=== PATIENT | female | born 1945 | race Two or more races ===

== ENCOUNTER 2018-05-21 14:41 | Emergency (ER) | payer MEDICARE, OTHER ==
[~2018-05-21] VITALS: Ht 162.6 cm; Wt 86.2 kg
[2018-05-21 14:41] VITALS: BP 147/94
[2018-05-21] MEDS ORDERED: HYDROCODONE/APAP 5/325MG 1 EACH TABLET PO ONE (16:30)
[2018-05-21] MEDS ORDERED: HYDROCODONE/APAP 5/325MG 1 EACH TABLET ONE ×2 (16:32)
== END 2018-05-21 17:26 | disposition home or self-care (01) ==
LOC: ER 14:49
DX: S92.354A Nondisplaced fracture of fifth metatarsal bone, right foot, initial encounter for closed fracture (principal); I10 Essential (primary) hypertension; E11.9 Type 2 diabetes mellitus without complications; X50.1XXA Overexertion from prolonged static or awkward postures, initial encounter; Y93.01 Activity, walking, marching and hiking; Y92.89 Other specified places as the place of occurrence of the external cause; Y99.8 Other external cause status
CPT/HCPCS: 73610; 73620; 99284; A4606; Z7610

== ENCOUNTER 2020-10-31 00:52 | Inpatient (IN) | payer MEDICARE, OTHER ==
[~2020-10-31] VITALS: Ht 162.6 cm; Wt 82.6 kg
--- NOTE | 2020-10-31 01:08 | NUR ---
PATIENT'S BLOOD COLLECTED AND SENT TO THE LAB.
--- NOTE | 2020-10-31 01:11 | NUR ---
COVID SWAB COLLECTED AND SENT TO THE LAB.
[2020-10-31 01:20] LABS: BASOPHILS # (AUTO) 0.1 /CMM (0.0-0.2); BASOPHILS % (AUTO) 0.8 % (0.0-2.0); EOSINOPHILS % (AUTO) 2.3 % (0.0-6.0); HEMATOCRIT 42 % (33-45); HEMOGLOBIN 13.5 g/dL (11.5-14.8); LYMPHOCYTES # (AUTO) 4.5 /CMM (0.8-4.8); LYMPHOCYTES % (AUTO) 41.8 % (20.0-44.0); MEAN CORPUSCULAR HGB CONC 32 g/dl (31.0-36.0); MEAN CORPUSCULAR VOLUME 89 fL (82-100); MONOCYTES # (AUTO) 0.6 /CMM (0.1-1.30); MONOCYTES % (AUTO) 5.2 % (2.0-12.0); NEUTROPHILS # (AUTO) 5.3 /CMM (1.8-8.9); NEUTROPHILS % (AUTO) 49.9 % (43.0-81.0); PLATELET COUNT (AUTO) 309 /CMM (150-450); RED BLOOD CELL COUNT(AUTO) 4.69 MIL/uL (4.0-5.2); WHITE BLOOD COUNT (AUTO) 10.7 K/uL (4.3-11.0)
[2020-10-31 01:26] LABS: CALCIUM, SERUM 9.6 mg/dL (8.5-10.1); CREATININE 0.8 mg/dL (0.6-1.3)
[2020-10-31 01:38] LABS: ALBUMIN 4.3 g/dL (3.4-5.0); BILIRUBIN,DIRECT 0.1 mg/dL (0.0-0.2); BILIRUBIN,TOTAL 0.3 mg/dL (0.2-1.0)
--- NOTE | 2020-10-31 01:57 | NUR ---
REPORT GIVEN TO CHRISTOPHER HINDS FOR MARISA
[2020-10-31 02:20] VITALS: BP 155/71
--- NOTE | 2020-10-31 02:32 | NUR ---
PT TRANSFERED PER ACLS PROTOCOL
--- NOTE | 2020-10-31 03:18 | NUR ---
TELE/RN OPENING NOTES RECEIVED REPORT FROM FIREMAN HELPER BIBI AT 0155HRS. PATIENT ARRIVED ON UNIT AT 0220HRS VIA GURNEY. PATIENT SUSTAINED NO INJURIES DURING TRANSFER. PATIENT WAS ABLE TO AMBULATE TO BED WITH MIN. ASST. PATIENT STABLE ON ROOM AIR. PATIENT ALERT AND ORIENTED X 4. PATIENT BREATHING IS EVEN AND UNLABORED. NO SIGNS OF SOB OR RESPIRATORY DISTRESS NOTED. PATIENT STATED PAIN AT CHEST AREA AND A MILD HEADACHE. PATIENT SIGNED BELONGING LIST. TELE MONITOR APPLIED. SAFETY MEASURES ARE IN PLACE, BED IS LOCKED AND PLACED IN THE LOW POSITION, CALL LIGHT WITHIN REACH WILL CONTINUE TO MONITOR THROUGH OUT SHIFT.
[2020-10-31 04:00] VITALS: BP 165/93
[2020-10-31] MEDS ORDERED: MAGNESIUM HYDROXIDE 30 ML UDC PO PRN (05:30)
[2020-10-31] MEDS ORDERED: ZOLPIDEM TARTRATE 5 MG TABLET PO PRN ×2 (05:30→22:00)
[2020-10-31] MEDS ORDERED: Z GUARD REMEDY 2 OZ OINT TP PRN (05:30)
[2020-10-31] MEDS ORDERED: ACETAMINOPHEN 325 MG TABLET PO PRN (05:30)
[2020-10-31] MEDS ORDERED: MAG HYDROX/AL HYDROX/SIMETH 30 ML UDC PO PRN (05:30)
[2020-10-31] MEDS ORDERED: ENOXAPARIN SODIUM 40 MG/0.4 ML DISP.SYRIN SQ SCH (05:30)
[2020-10-31] MEDS: HYDROCODONE/APAP 5/325MG TABLET PO PRN ×3 (05:41→20:31)
--- NOTE | 2020-10-31 06:55 | NUR ---
TELE/RN CLOSING NOTES PATIENT IN BED RESTING. PATIENT IS ALERT AND ORIENTED X 4. PATIENTS BREATHING IS EVEN AND UNLABORED. NO SIGNS OF SOB OR RESPIRATORY DISTRESS NOTED. PATIENT STATES NO PAIN AT THIS TIME. TELE READING SR 79. PATIENT IN NO SIGNS OF ACUTE DISTRESS. IV ACCESS INTACT FLUSHING WELL. ALL NEEDS HAVE BEEN MET DURING SHIFT. SAFETY MEASURES ARE IN PLACE, BED IS LOCKED AND PLACED IN THE LOW POSITION, SIDE RAILS UP X 2, CALL LIGHT IS WITHIN REACH. WILL ENDORSE CARE TO DAY SHIFT NURSE.
--- NOTE | 2020-10-31 07:30 | NUR ---
RECEIVED PT. THIS AM ALERT AND ORIENTED X4,MONTSERRATIAN SPEAKING.VS STABLE.
[2020-10-31 08:00] VITALS: BP 131/72
[2020-10-31] MEDS ORDERED: IV NS 0.9% 500 ML IV PRN (09:00)
[2020-10-31] MEDS ORDERED: ATORVASTATIN 10 MG TABLET PO SCH (09:00)
[2020-10-31] MEDS ORDERED: ENOXAPARIN SODIUM 40 MG/0.4 ML DISP.SYRIN SQ ONE (09:00)
[2020-10-31] MEDS ORDERED: NITROGLYCERIN 0.4 MG/TAB BOTTLE SL ONE (09:00)
[2020-10-31] MEDS ORDERED: ATENOLOL 25 MG TABLET PO SCH (09:00)
[2020-10-31] MEDS: ASPIRIN 325 MG TABLET PO SCH (10:02)
[2020-10-31 10:13] LABS: THYROID STIMULATING HORMONE 1.447 uIU/mL (0.358-3.74)
[2020-10-31] MEDS ORDERED: IOHEXOL-350 100 ML VIAL IV ONE (10:23)
[2020-10-31] MEDS ORDERED: METOPROLOL TARTRATE INJ 5 MG/5 ML AMPUL ONE ×3 (10:24→11:04)
[2020-10-31] MEDS ORDERED: IV NS 0.9% 250 ML IV ONE (10:24)
[2020-10-31] MEDS ORDERED: CT SWABBABLE VALVE TRANS SET 1 EA INFUS.SET MC ONE (10:24)
[2020-10-31] MEDS: METOPROLOL TARTRATE INJ 5 MG/5 ML AMPUL IVP PRN ×6 (10:42→11:07)
[2020-10-31] MEDS ORDERED: ATOR10TA PO (10:51)
[2020-10-31] MEDS ORDERED: ERGO500014 PO (10:51)
[2020-10-31] MEDS ORDERED: FOLI0.4T2 PO (10:51)
[2020-10-31] MEDS ORDERED: OLME1TAB92 PO (10:51)
[2020-10-31] MEDS ORDERED: HYDR-3642 PO (10:51)
[2020-10-31] MEDS ORDERED: NAPR-1009 PO (10:51)
[2020-10-31] MEDS ORDERED: MEMA10TA56 PO (10:51)
[2020-10-31] MEDS ORDERED: SITA1TAB6 PO (10:51)
[2020-10-31] MEDS ORDERED: EZET10TA32 PO (10:51)
[2020-10-31] MEDS ORDERED: ZOLP5TAB8 PO (10:51)
[2020-10-31] MEDS ORDERED: AMLO-213 PO (10:51)
[2020-10-31] MEDS ORDERED: MIRT15TA7 PO (10:51)
[2020-10-31] MEDS ORDERED: SERT-438 PO (10:51)
[2020-10-31] MEDS ORDERED: MECL-183 PO (10:51)
[2020-10-31] MEDS ORDERED: CILO100T PO (10:51)
[2020-10-31] MEDS ORDERED: ISOS60TA72 PO (10:51)
[2020-10-31] MEDS ORDERED: ASPI-1420 PO (10:51)
[2020-10-31] MEDS ORDERED: INSU100I26 SQ (10:51)
[2020-10-31] MEDS ORDERED: ALEN70TA80 PO (10:51)
[2020-10-31] MEDS ORDERED: DULA0.75 SQ (10:51)
[2020-10-31] MEDS ORDERED: OMEP20CA15 PO (10:51)
[2020-10-31] MEDS ORDERED: CALC-17 PO (10:51)
[2020-10-31] MEDS ORDERED: FURO40TA5 PO (10:51)
[2020-10-31] MEDS ORDERED: GABA-532 PO (10:51)
[2020-10-31] MEDS ORDERED: GEMF600T90 PO (10:51)
[2020-10-31] MEDS ORDERED: LORA-258 PO (10:51)
[2020-10-31] MEDS ORDERED: CARV6.252 PO (10:51)
--- NOTE | 2020-10-31 11:16 | NUR ---
for CTA heart' AAOx4,VSS; denies CP or SOB, on OHAS at [facility], advised to hold OHASx2 days post CTA; had a total of Metoprolol 5 mg IVPx 6 doses and NTG, report given to LIZET Zhong; sent back to floor via wheelchair
[2020-10-31 12:00] VITALS: BP 107/67
[2020-10-31] MEDS: METOPROLOL TARTRATE 50 MG TABLET PO SCH ×2 (12:00→17:59)
[2020-10-31] MEDS ORDERED: CYAN10006 IM (12:02)
--- NOTE | 2020-10-31 12:25 | NUR ---
noon metoprolol held as had this med during ct angio of heart.
[2020-10-31 13:11] LABS: MAGNESIUM 1.4 mg/dL (1.8-2.4); PHOSPHORUS 4.4 mg/dL (2.5-4.9)
--- NOTE | 2020-10-31 13:30 | NUR ---
received call from radiology regarding lesion found on ct angio of heart.radiologist called dr. webster and dr. webster requesting medical md be informed.
--- NOTE | 2020-10-31 13:45 | NUR ---
rn contacted dr. slater-stated pt to be cathed tomorrow.
[2020-10-31] MEDS ORDERED: LORAZEPAM 0.5 MG TABLET PO PRN (15:30)
[2020-10-31] MEDS ORDERED: MECLIZINE HCL 12.5 MG TABLET PO PRN (15:30)
[2020-10-31] MEDS ORDERED: Medication Not On Formulary EA (Dulaglutide (Trulicity) 0.75 MG) SQ SCH (15:30)
[2020-10-31 16:00] VITALS: BP 123/67
[2020-10-31] MEDS ORDERED: DEXTROSE 50%-WATER 50 ML DISP.SYRIN IV PRN (17:00)
[2020-10-31] MEDS ORDERED: NAPROXEN 500 MG TABLET PO PRN (17:00)
[2020-10-31] MEDS ORDERED: Medication Not On Formulary EA (Sitagliptin Phos/Metformin Hcl (Janumet 50-1,000 Mg Tabl PO SCH (17:00)
[2020-10-31] MEDS: BLOOD SUGAR DIAGNOSTIC 1 EACH STRIP IN SCH ×2 (17:19→21:58)
[2020-10-31] MEDS ORDERED: BLOOD SUGAR DIAGNOSTIC 1 EACH STRIP IN SCH (17:30)
[2020-10-31] MEDS: METFORMIN 500 MG TABLET PO SCH (17:59)
[2020-10-31] MEDS: hydrOXYzine 10 MG TABLET PO SCH (17:59)
[2020-10-31] MEDS: GEMFIBROZIL 600 MG TABLET PO SCH (18:00)
[2020-10-31] MEDS: MEMANTINE HCL 5 MG TABLET PO SCH (18:00)
[2020-10-31] MEDS: CALCIUM CARB 600MG /VIT D 1 EACH TABLET PO SCH (18:00)
--- NOTE | 2020-10-31 19:00 | NUR ---
TESTS COMPLETED.PT. WITHOUT COMPLAINTS.DTR. CALLING [employer].
--- NOTE | 2020-10-31 19:30 | NUR ---
TELE/RN OPENING NOTES RECEIVED PATIENT IN BED RESTING. PATIENT IS ALERT AND ORIENTED X 4. PATIENTS BREATHING IS EVEN AND UNLABORED. NO SIGNS OF SOB OR RESPIRATORY DISTRESS NOTED. PATIENT STATES NO PAIN AT THIS TIME. PATIENT IN NO SIGNS OF ACUTE DISTRESS. IV ACCESS INTACT FLUSHING WELL. SAFETY MEASURES ARE IN PLACE, BED IS LOCKED AND PLACED IN THE LOW POSITION, SIDE RAILS UP X 2, CALL LIGHT IS WITHIN REACH. WILL CONTINUE TO MONITOR THROUGH OUT SHIFT.
--- NOTE | 2020-10-31 19:50 | NUR ---
TELE/RN NOTES PER MD NIXON, PATIENT FOR WEB SIZER IN AM, KEEP NPO S/P MIDNIGHT. OK OT HOLD PM LOVENOX.
[2020-10-31 20:30] VITALS: BP 137/79
--- NOTE | 2020-10-31 20:50 | NUR ---
TELE/RN NOTES MD NIXON CALLED, CANCEL SCREENING NURSE FOR AM, CANCEL NPO FOR PATIENT POST MIDNIGHT. ORDERED CARRIED OUT.
[2020-10-31] MEDS ORDERED: ENOXAPARIN SODIUM 80 MG/0.8 ML DISP.SYRIN SQ SCH (21:00)
[2020-10-31] MEDS: CARVEDILOL 6.25 MG TABLET PO SCH (21:37)
[2020-10-31] MEDS: MIRTAZAPINE 15 MG TABLET PO SCH (21:37)
[2020-10-31] MEDS: GABAPENTIN 100 MG CAPSULE PO SCH (21:37)
[2020-10-31] MEDS: INSULIN REGULAR, HUMAN 100 UNIT/ML 3 ML VIAL SQ PRN (21:58)
[2020-11-01] VITALS (7 sets, daily range): BP systolic 104–146; BP diastolic 48–83
[2020-11-01] MEDS: METOPROLOL TARTRATE 50 MG TABLET PO SCH ×4 (00:22→17:04)
[2020-11-01] MEDS: INSULIN REGULAR, HUMAN 100 UNIT/ML 3 ML VIAL SQ PRN ×3 (06:28→21:38)
[2020-11-01] MEDS: BLOOD SUGAR DIAGNOSTIC 1 EACH STRIP IN SCH ×4 (06:28→21:29)
[2020-11-01 06:33] LABS: BASOPHILS % (AUTO) 0.5 % (0.0-2.0); EOSINOPHILS % (AUTO) 2.2 % (0.0-6.0); HEMATOCRIT 41 % (33-45); HEMOGLOBIN 13.3 g/dL (11.5-14.8); LYMPHOCYTES # (AUTO) 4.2 /CMM (0.8-4.8); LYMPHOCYTES % (AUTO) 43.2 % (20.0-44.0); MEAN CORPUSCULAR HGB CONC 33 g/dl (31.0-36.0); MEAN CORPUSCULAR VOLUME 89 fL (82-100); MONOCYTES # (AUTO) 0.5 /CMM (0.1-1.30); MONOCYTES % (AUTO) 5.1 % (2.0-12.0); NEUTROPHILS # (AUTO) 4.8 /CMM (1.8-8.9); PLATELET COUNT (AUTO) 300 /CMM (150-450); RED BLOOD CELL COUNT(AUTO) 4.58 MIL/uL (4.0-5.2); WHITE BLOOD COUNT (AUTO) 9.7 K/uL (4.3-11.0)
[2020-11-01 06:37] LABS: ALBUMIN 3.6 g/dL (3.4-5.0); BILIRUBIN,TOTAL 0.5 mg/dL (0.2-1.0); CALCIUM, SERUM 9.9 mg/dL (8.5-10.1); CREATININE 0.9 mg/dL (0.6-1.3); MAGNESIUM 1.8 mg/dL (1.8-2.4); PHOSPHORUS 4.7 mg/dL (2.5-4.9); TOTAL PROTEIN, SERUM 7.4 g/dL (6.4-8.2)
--- NOTE | 2020-11-01 06:55 | NUR ---
TELE/RN OPENING NOTES PATIENT IN BED RESTING. PATIENT IS ALERT AND ORIENTED X 4. PATIENTS BREATHING IS EVEN AND UNLABORED. NO SIGNS OF SOB OR RESPIRATORY DISTRESS NOTED. PATIENT STATES NO PAIN AT THIS TIME. PATIENT IN NO SIGNS OF ACUTE DISTRESS. IV ACCESS INTACT FLUSHING WELL. ALL NEEDS HAVE BEEN MET DURING SHIFT. SAFETY MEASURES ARE IN PLACE, BED IS LOCKED AND PLACED IN THE LOW POSITION, SIDE RAILS UP X 2, CALL LIGHT IS WITHIN REACH. WILL ENDORSE CARE TO DAY SHIFT NURSE.
[2020-11-01] MEDS ORDERED: ALENDRONATE 70 MG TABLET PO SCH (07:30)
--- NOTE | 2020-11-01 08:00 | NUR ---
RN Opening note Received patient AO x 4 Khmer speaking, patient does no appears pain or distress, skin is warm to touch keep clean/dry, intact IV site. Kept elevated HOB for ensure airway and aspiration precaution also lower bed position with bed alarm on for safety. Call light within reach, will continue to monitor.
[2020-11-01] MEDS: PANTOPRAZOLE 40 MG TABLET.DR PO SCH (08:24)
[2020-11-01] MEDS: ENOXAPARIN SODIUM 40 MG/0.4 ML DISP.SYRIN SQ SCH (08:25)
[2020-11-01] MEDS: MEMANTINE HCL 5 MG TABLET PO SCH ×2 (08:46→16:44)
[2020-11-01] MEDS: GEMFIBROZIL 600 MG TABLET PO SCH ×2 (08:46→16:44)
[2020-11-01] MEDS: FOLIC ACID 1 MG TABLET PO SCH (08:46)
[2020-11-01] MEDS: ASPIRIN 325 MG TABLET PO SCH (08:46)
[2020-11-01] MEDS: SERTRALINE HCL 50 MG TABLET PO SCH (08:46)
[2020-11-01] MEDS: hydrOXYzine 10 MG TABLET PO SCH ×2 (08:47→17:04)
[2020-11-01] MEDS: AMLODIPINE BESYLATE 10 MG TABLET PO SCH (08:47)
[2020-11-01] MEDS: CALCIUM CARB 600MG /VIT D 1 EACH TABLET PO SCH ×2 (08:47→16:44)
[2020-11-01] MEDS: LINAGLIPTIN 5 MG TABLET PO SCH (08:47)
[2020-11-01] MEDS: EZETIMIBE 10 MG TABLET PO SCH (08:47)
[2020-11-01] MEDS: ATORVASTATIN 10 MG TABLET PO SCH (08:47)
[2020-11-01] MEDS: FUROSEMIDE 40 MG TABLET PO SCH (08:47)
[2020-11-01] MEDS: HYDROCHLOROTHIAZIDE 25 MG TABLET PO SCH (09:00)
[2020-11-01] MEDS ORDERED: ASPIRIN EC 81 MG TABLET.DR PO SCH (09:00)
[2020-11-01] MEDS: LOSARTAN POTASSIUM 50 MG TABLET PO SCH (09:00)
[2020-11-01] MEDS: CILOSTAZOL 100 MG TABLET PO SCH ×3 (09:00→17:41)
[2020-11-01] MEDS: METFORMIN 500 MG TABLET PO SCH ×2 (09:00→16:44)
[2020-11-01] MEDS: ISOSORBIDE MONONITRATE (30MG) 30 MG TAB.SR.24H PO SCH (09:00)
[2020-11-01] MEDS ORDERED: INSULIN GLARGINE, 100 UNIT/ML CARTRIDGE SQ SCH (09:00)
[2020-11-01] MEDS: CARVEDILOL 6.25 MG TABLET PO SCH ×2 (09:00→21:30)
[2020-11-01] MEDS ORDERED: Medication Not On Formulary EA (Olmesartan/Hydrochlorothiazide (Olmesartan-Hctz 40-25 mg PO SCH (09:00)
[2020-11-01] MEDS: ONDANSETRON HCL/PF 4 MG/2 ML VIAL IVP PRN (10:43)
[2020-11-01 11:07] LABS: *SPE ALBUMIN 3.5 g/dL (2.9-4.4); *SPE ALPHA-1-GLOBULIN 0.2 g/dL (0.0-0.4); *SPE ALPHA-2-GLOBULIN 0.9 g/dL (0.4-1.0); *SPE GLOBULIN, TOTAL 3.6 g/dL (2.2-3.9); *SPE M-SPIKE Not Observed g/dL (Not Observed); *SPEGAMMA GLOBULIN 1.5 g/dL (0.4-1.8)
--- NOTE | 2020-11-01 18:00 | NUR ---
RN Closing note Patient in bed resting comfortably, does no c/o pain or distress at this time. Skin is warm to touch kept clean.dry, intact IV site. Respiratory even and unlabored on room air. Keep elevated HOB for ensure airway and aspiration precaution and lowest bed position for safety. Call light within reach, will endorse night order selector.
--- NOTE | 2020-11-01 19:45 | NUR ---
RN NOTES RECEIVED PT AWAKE ON BED, A/OX4, KHMER SPEAKING, SR ON TELE MONITOR HR-80,NOT IN DISTRESS, CALL LIGHT WITHIN REACH, SIDERAILSUPX2, CONTINUE TO MONITOR
[2020-11-01] MEDS: HYDROCODONE/APAP 5/325MG TABLET PO PRN (20:16)
--- NOTE | 2020-11-01 20:19 | NUR ---
RN NOTES COMPLAINED OF CHEST PAIN RADIATING TO BACK- NORCO 5/325 MG PO GIVEN ORDERED, V/S STABLE
[2020-11-01] MEDS: GABAPENTIN 100 MG CAPSULE PO SCH (21:30)
[2020-11-01] MEDS: MIRTAZAPINE 15 MG TABLET PO SCH (21:30)
[2020-11-02] VITALS (7 sets, daily range): BP systolic 115–145; BP diastolic 61–72
[2020-11-02] MEDS: METOPROLOL TARTRATE 50 MG TABLET PO SCH ×4 (00:13→18:25)
[2020-11-02] MEDS: BLOOD SUGAR DIAGNOSTIC 1 EACH STRIP IN SCH ×4 (06:30→21:57)
[2020-11-02] MEDS: INSULIN REGULAR, HUMAN 100 UNIT/ML 3 ML VIAL SQ PRN ×3 (06:32→18:29)
--- NOTE | 2020-11-02 06:37 | NUR ---
RN NOTES AWAKE, DENIES PAIN, NO SOB, MORNING CARE RENDERED, CALL LIGHT WITHIN REACH, SIDERAILSUPX2, PT. NEEDS ATTENDED
[2020-11-02 06:44] LABS: BASOPHILS % (AUTO) 0.4 % (0.0-2.0); EOSINOPHILS % (AUTO) 1.3 % (0.0-6.0); HEMATOCRIT 38 % (33-45); HEMOGLOBIN 12.7 g/dL (11.5-14.8); LYMPHOCYTES # (AUTO) 3.1 /CMM (0.8-4.8); LYMPHOCYTES % (AUTO) 33.9 % (20.0-44.0); MEAN CORPUSCULAR HGB CONC 33 g/dl (31.0-36.0); MEAN CORPUSCULAR VOLUME 89 fL (82-100); MONOCYTES # (AUTO) 0.6 /CMM (0.1-1.30); MONOCYTES % (AUTO) 6.6 % (2.0-12.0); NEUTROPHILS # (AUTO) 5.3 /CMM (1.8-8.9); NEUTROPHILS % (AUTO) 57.8 % (43.0-81.0); PLATELET COUNT (AUTO) 285 /CMM (150-450); RED BLOOD CELL COUNT(AUTO) 4.32 MIL/uL (4.0-5.2); WHITE BLOOD COUNT (AUTO) 9.2 K/uL (4.3-11.0)
[2020-11-02 06:59] LABS: CALCIUM, SERUM 10.4 mg/dL (8.5-10.1); CREATININE 1.2 mg/dL (0.6-1.3); POTASSIUM 4.4 mmol/L (3.5-5.1)
--- NOTE | 2020-11-02 08:00 | NUR ---
RN OPENING NOTE PT IS AWAKE IN BED RESTING. A/O X3 AND BULGARIAN SPEAKING. ABLE TO MAKE SOME NEEDS KNOWN TO NURSES. NO COMPLAINT OF PAIN. SINUS RHYTHM RECORDED VIA EXTERNAL MONITOR. AMBULATORY. ABLE TO USE BATHROOM WITH ASSIST. SKIN INTACT. HL PRESENT IN L AC, 20 G. SAFETY MEASURES IN PLACE. SIDE RAILS RAISED. BED LOWERED. WILL CONTINUE TO MONITOR.
[2020-11-02] MEDS: MEMANTINE HCL 5 MG TABLET PO SCH ×2 (08:19→18:25)
[2020-11-02] MEDS: hydrOXYzine 10 MG TABLET PO SCH ×2 (08:20→18:26)
[2020-11-02] MEDS: EZETIMIBE 10 MG TABLET PO SCH (08:20)
[2020-11-02] MEDS: GEMFIBROZIL 600 MG TABLET PO SCH ×2 (08:20→18:25)
[2020-11-02] MEDS: LINAGLIPTIN 5 MG TABLET PO SCH (08:20)
[2020-11-02] MEDS: FOLIC ACID 1 MG TABLET PO SCH (08:20)
[2020-11-02] MEDS: METFORMIN 500 MG TABLET PO SCH ×2 (08:21→18:26)
[2020-11-02] MEDS: PANTOPRAZOLE 40 MG TABLET.DR PO SCH (08:21)
[2020-11-02] MEDS: ASPIRIN 325 MG TABLET PO SCH (08:21)
[2020-11-02] MEDS: CALCIUM CARB 600MG /VIT D 1 EACH TABLET PO SCH ×2 (08:21→18:25)
[2020-11-02] MEDS: SERTRALINE HCL 50 MG TABLET PO SCH (08:21)
[2020-11-02] MEDS: FUROSEMIDE 40 MG TABLET PO SCH (08:21)
[2020-11-02] MEDS: LOSARTAN POTASSIUM 50 MG TABLET PO SCH (08:32)
[2020-11-02] MEDS: HYDROCHLOROTHIAZIDE 25 MG TABLET PO SCH (08:33)
[2020-11-02] MEDS: ISOSORBIDE MONONITRATE (30MG) 30 MG TAB.SR.24H PO SCH (08:33)
[2020-11-02] MEDS: AMLODIPINE BESYLATE 10 MG TABLET PO SCH (08:34)
[2020-11-02] MEDS: ATORVASTATIN 10 MG TABLET PO SCH (08:35)
[2020-11-02] MEDS: CILOSTAZOL 100 MG TABLET PO SCH ×2 (08:35→18:26)
[2020-11-02] MEDS: CARVEDILOL 6.25 MG TABLET PO SCH ×2 (08:36→21:18)
[2020-11-02] MEDS: ENOXAPARIN SODIUM 40 MG/0.4 ML DISP.SYRIN SQ SCH (09:18)
[2020-11-02] MEDS: INSULIN GLARGINE, 100 UNIT/ML CARTRIDGE SQ SCH (09:28)
--- NOTE | 2020-11-02 19:07 | NUR ---
RN CLOSING NOTE PT IS AWAKE IN BED RESTING. A/O X3 AND LAO SPEAKING. ABLE TO MAKE SOME NEEDS KNOWN TO NURSES. NO COMPLAINT OF PAIN. SINUS RHYTHM RECORDED VIA EXTERNAL MONITOR. AMBULATORY. ABLE TO USE BATHROOM WITH ASSIST. SKIN INTACT. HL PRESENT IN L AC, [address] G[address] ME[address]URES IN [address]. SIDE RAILS RAISED. BED LOWERED. ROUTINE MEDS GIVEN. REPORT GIVEN TO NIGHT NURSE.
--- NOTE | 2020-11-02 19:30 | NUR ---
SHUTTLECOCK FEATHER TRIMMER NOTES RECEIVED ON BED A/O X4,WATCHING TV PROGRAM,SPEAK KITTITIAN,BREATHING EASY,NO SOB,O2 I USED AT 2/NC TO KEEP O2 SAT ABOVE 90%.INSTRUCTED NPO POST MIDNIGHT EXCEPT MEDS FOR HEART CATH TOMORROW UNDER DR BROWN,CONSENT ON CHART.WITH SALINE LOCK LEFT AC INTACT AND PATENT. SR -84 ON TELE MONITOR,DENIES CHEST DISCOMFORTS.CALL LIGHT IN REACH,NEEDS ANTICIPATED.
[2020-11-02] MEDS: GABAPENTIN 100 MG CAPSULE PO SCH (21:18)
[2020-11-02] MEDS: MIRTAZAPINE 15 MG TABLET PO SCH (21:19)
--- NOTE | 2020-11-02 22:00 | NUR ---
FREIGHT SOLICITOR NOTES ACCU-CHECK BLOOD SUGAR CHECK 180,INSULIN COVERAGE HELD,NPO FOR HEART CATH IN THE MORNING
[2020-11-03] VITALS (24 sets, daily range): BP systolic 95–147; BP diastolic 40–78
[2020-11-03] MEDS: METOPROLOL TARTRATE 50 MG TABLET PO SCH ×4 (00:22→18:04)
--- NOTE | 2020-11-03 05:30 | NUR ---
CHIEF POWER DISPATCHER NOTES ACCU-CHECK BLOOD SUGAR CHECK 172,INSULIN COVERAGE HELD,NPO FOR HEART CATH AT 1100 AM
[2020-11-03] MEDS: BLOOD SUGAR DIAGNOSTIC 1 EACH STRIP IN SCH ×4 (05:33→21:27)
[2020-11-03 06:17] LABS: CALCIUM, SERUM 10.7 mg/dL (8.5-10.1); CREATININE 1.1 mg/dL (0.6-1.3); POTASSIUM 4.3 mmol/L (3.5-5.1)
--- NOTE | 2020-11-03 06:19 | NUR ---
TRAMPOLINE TEAM COACH NOTES ON BED A/O X3-4,ASSIST WITH MORNING CARE,KEPT NPO FOR CARDIAC CATH.SALINE LOCK LEFT AC INTACT AND PATENT.SR ON TELE MONITOR.CALL LIGHT IN REACH,NEEDS ATTENDED.
[2020-11-03 06:26] LABS: BASOPHILS % (AUTO) 0.3 % (0.0-2.0); EOSINOPHILS % (AUTO) 1.6 % (0.0-6.0); HEMATOCRIT 38 % (33-45); HEMOGLOBIN 12.3 g/dL (11.5-14.8); LYMPHOCYTES # (AUTO) 3.3 /CMM (0.8-4.8); LYMPHOCYTES % (AUTO) 38.5 % (20.0-44.0); MEAN CORPUSCULAR HGB CONC 33 g/dl (31.0-36.0); MEAN CORPUSCULAR VOLUME 89 fL (82-100); MONOCYTES # (AUTO) 0.5 /CMM (0.1-1.30); MONOCYTES % (AUTO) 6.4 % (2.0-12.0); NEUTROPHILS # (AUTO) 4.6 /CMM (1.8-8.9); NEUTROPHILS % (AUTO) 53.2 % (43.0-81.0); PLATELET COUNT (AUTO) 277 /CMM (150-450); RED BLOOD CELL COUNT(AUTO) 4.24 MIL/uL (4.0-5.2); WHITE BLOOD COUNT (AUTO) 8.6 K/uL (4.3-11.0)
--- NOTE | 2020-11-03 07:00 | NUR ---
RN OPENING NOTES RECEIVED PT AWAKE IN BED AT THIS TIME. AOX3, PT ABLE TO VERBALIZE NEEDS, MACEDONIAN SPEAKING. PT NOTED ON OXYGEN 2LPM VIA NC. PT NOTED ON EXTERNAL PAIL BAILER READING SR 86. NO SOB NOTED, NO SIGN OF ANY ACUTE DISTRESS NOTED, NO C/O PAIN AT THIS TIME. IV ACCESS NOTED IN LAC G#20, INTACT, PATENT AND FLUSHING WELL. ASPIRATIONS AND SAFETY PRECAUTIONS IN PLACE AND MAINTAINED AT ALL TIMES. BED IN LOWEST LOCKED POSITION, SIDE RAILS UP, HOB ELEVATED, TABLE AND CALL LIGHT WITHIN REACH. WILL CONTINUE TO MONITOR
[2020-11-03] MEDS: ENOXAPARIN SODIUM 40 MG/0.4 ML DISP.SYRIN SQ SCH ×2 (08:00→09:11)
[2020-11-03] MEDS: ASPIRIN 325 MG TABLET PO SCH (09:13)
[2020-11-03] MEDS: FUROSEMIDE 40 MG TABLET PO SCH (09:13)
[2020-11-03] MEDS: hydrOXYzine 10 MG TABLET PO SCH ×2 (09:13→18:43)
[2020-11-03] MEDS: LOSARTAN POTASSIUM 50 MG TABLET PO SCH (09:13)
[2020-11-03] MEDS: METFORMIN 500 MG TABLET PO SCH ×2 (09:13→17:16)
[2020-11-03] MEDS: AMLODIPINE BESYLATE 10 MG TABLET PO SCH (09:14)
[2020-11-03] MEDS: LINAGLIPTIN 5 MG TABLET PO SCH (09:14)
[2020-11-03] MEDS: ATORVASTATIN 10 MG TABLET PO SCH (09:14)
[2020-11-03] MEDS: MEMANTINE HCL 5 MG TABLET PO SCH ×2 (09:14→17:16)
[2020-11-03] MEDS: EZETIMIBE 10 MG TABLET PO SCH (09:14)
[2020-11-03] MEDS: SERTRALINE HCL 50 MG TABLET PO SCH (09:14)
[2020-11-03] MEDS: HYDROCHLOROTHIAZIDE 25 MG TABLET PO SCH (09:14)
[2020-11-03] MEDS: CARVEDILOL 6.25 MG TABLET PO SCH ×2 (09:15→21:20)
[2020-11-03] MEDS: CALCIUM CARB 600MG /VIT D 1 EACH TABLET PO SCH ×2 (09:15→17:16)
[2020-11-03] MEDS: ISOSORBIDE MONONITRATE (30MG) 30 MG TAB.SR.24H PO SCH (09:15)
[2020-11-03] MEDS: FOLIC ACID 1 MG TABLET PO SCH (09:15)
[2020-11-03] MEDS: PANTOPRAZOLE 40 MG TABLET.DR PO SCH (09:16)
[2020-11-03] MEDS: CILOSTAZOL 100 MG TABLET PO SCH ×2 (09:25→17:18)
[2020-11-03] MEDS: INSULIN GLARGINE, 100 UNIT/ML CARTRIDGE SQ SCH (09:39)
[2020-11-03] MEDS: GEMFIBROZIL 600 MG TABLET PO SCH ×2 (09:46→18:42)
--- NOTE | 2020-11-03 11:10 | NUR ---
ISMA ([phone]), PT'S DAUGHTER CALLED AND WAS UPDATED ON PT'S STATUS. WILL CONTINUE WITH PLAN OF CARE
[2020-11-03] MEDS ORDERED: IV NS 0.9% 1,000 ML ONE (11:58)
[2020-11-03] MEDS ORDERED: IODIXANOL 150 ML IV ONE (11:59)
[2020-11-03] MEDS ORDERED: LIDOCAINE HCL/MPF 1% 30 ML VIAL IJ ONE (12:00)
[2020-11-03] MEDS ORDERED: NITROGLYCERIN ICAR 1,000 MCG/10 ML VIAL ICAR ONE ×2 (12:00→13:48)
[2020-11-03] MEDS ORDERED: FENTANYL PF 100MCG/2ML AMPUL ONE (12:27)
[2020-11-03] MEDS ORDERED: MIDAZOLAM HCL 2 MG/2ML VIAL ONE (12:27)
--- NOTE | 2020-11-03 12:45 | NUR ---
PT SCHEDULED LOPRESSOR 50MG PO NON ADMINISTERED DUE TO PT NOT IN UNIT. PT TRANSPORTED TO PATIENT'S LIBRARIAN FOR HEART CATHETERIZATION. WILL CONTINUE WITH PLAN OF CARE
--- NOTE | 2020-11-03 12:50 | NUR ---
BLOOD SUGAR 144, INSULIN NON ADMINISTERED DUE TO PT NOT IN UNIT AT THIS TIME. PT IN SYSTEM DESIGNER FOR PROCEDURE. WILL CONTINUE WITH PLAN OF CARE
[2020-11-03] MEDS ORDERED: IODIXANOL 320MG/ML 50 ML IV ONE (13:05)
[2020-11-03] MEDS ORDERED: HEPARIN SODIUM, PORCINE 5000 UNITS/1 ML VIAL ONE (13:05)
[2020-11-03] MEDS ORDERED: HEPARIN SODIUM, PORCINE 1,000 UNIT/ML VIAL ONE ×2 (13:05→14:22)
[2020-11-03] MEDS ORDERED: ATROPINE SULFATE 1 MG/10 ML DISP.SYRIN ONE (13:12)
[2020-11-03] MEDS ORDERED: EPINEPHRINE (1:10,000) SYRINGE 1 MG/10 ML DISP.SYRIN ONE (13:12)
[2020-11-03] MEDS ORDERED: TICAGRELOR 90 MG TABLET PO ONE (13:37)
--- NOTE | 2020-11-03 14:42 | NUR ---
POST LHC PROCEDURE DONE. PT IS AAOX4, NOT IN RESPIRATORY DISTRESS, HOOKED TO EROSION CONTROL SPECIALIST, KEPT RESTED AND COMFORTABLE. REPORT GIVEN TO LIZET NICHOLS FOR MARISA. WITH TR BAND ON THE R RADIAL NO BLEEDING NOTED AND R FEMORAL ACCESS CLOSED BY NO BLEEDING NOTED. PT EDUCATION GIVEN.
--- NOTE | 2020-11-03 15:15 | NUR ---
CHIP BIN CONVEYOR TENDER: got tp from cathlab, pt.is A/Ox3, no c/o now, no any pain, SR, SBP [id number], O2sat. 91-92%, placed on 2L O2 NC, R.trans radialA band intact/start, start air remove after 16.45 cathlab RN reported by 2ml q15m total 13ml, R.femoral dressing is clean/intact, keep pt flat for 2 hrs, L.hand PIVL#20, orders reported: INF NS@100ml/hr total 600ml/hr, aspirin 81mg daily, Brilinta 90mg BID, sent order to pharmacy for verification because got in chart info meds were given before cathlab, expalained POC to pt.with American translation, pt.daughter called/updated
--- NOTE | 2020-11-03 15:16 | NUR ---
GAS EXAMINER: cathlab nurse confirmed ok to continue Metoprolol, Pletal if BP is ok
--- NOTE | 2020-11-03 15:17 | NUR ---
MANAGER PRODUCT MARKETING: R.radial artery pulse, R.leg artery pulse are ok
[2020-11-03] MEDS ORDERED: IV NS 0.9% 1,000 ML IV ONE (15:30)
--- NOTE | 2020-11-03 15:30 | NUR ---
KAM LAMBERT DELIVERED PT'S BELONGING TO LIZET NICHOLS ICU. PER KAM LAMBERT, PT'S BELONGINGS WERE VERIFIED AND ALL BELONGINGS ACCOUNTED FOR BY LIZET NICHOLS, FOR MARISA
--- NOTE | 2020-11-03 15:45 | NUR ---
FBI SHARPSHOOTER: pharmacy called, confirmed: aspirin, brilinta were given today, next dose in AM
--- NOTE | 2020-11-03 16:46 | NUR ---
GREY ROLL MAN: started to remove air from RATB, R.femoral dressing is intact/no bleeding
--- NOTE | 2020-11-03 17:11 | NUR ---
BOTTOMER OPERATOR: called to [address] [place] [address] to bring pt.meds/insulin
[2020-11-03] MEDS: INSULIN REGULAR, HUMAN 100 UNIT/ML 3 ML VIAL SQ PRN ×2 (17:38→21:29)
--- NOTE | 2020-11-03 17:40 | NUR ---
SALES SUPERINTENDENT: pt.got two sips of water, c/o nausea, epigastric discomfort, pain 4-6/10 around epigastric, left anterior pain (Irish translation by Wisam), ok to get Jeremy Mcfarlaneco, hold all PO meds for now, will notify next nurse
[2020-11-03] MEDS: ONDANSETRON HCL/PF 4 MG/2 ML VIAL IVP PRN (17:50)
--- NOTE | 2020-11-03 17:50 | NUR ---
AMERICAN SIGN LANGUAGE TEACHER: removed 10ml air form RATB total/residual 3ml, there is small bloody oozing under band window, inflated back 4 ml air/total 7ml into, continue monitoring for 15-30 mins, Charge nurse Ana is room/aware/agree
[2020-11-03] MEDS: HYDROCODONE/APAP 5/325MG TABLET PO PRN (18:05)
--- NOTE | 2020-11-03 18:10 | NUR ---
MACHINE CAPTAIN: no new bleeding under band, R.radial pulse ok, pt.said: feels better, no N/V, pain down, VSS, SR, O2sat. over 96% on 1LNC, SBP over 100/below 150, R.femoral dressing is clean/intact,pt.daughter called/updated
--- NOTE | 2020-11-03 18:30 | NUR ---
PETROLEUM PRODUCTS DISTRICT SUPERVISOR: pt feels better, no bleeding/bloody oozing under band, restarted remove 2 ml air q15m
--- NOTE | 2020-11-03 18:48 | NUR ---
CONSTRUCTION SERVICES TECHNICIAN: 18.45 removed 2 ml air/small bloody oozing from puncture 3-5mm again, inflated back 2 ml of air, no bleeding
--- NOTE | 2020-11-03 19:36 | NUR ---
NUTRITION AND DIETETICS INSTRUCTOR OPENING NOTES: Rec'd pt in bed A&Ox3, Belarusian speaking. On 2LPM NC tolerating well. No resp distress noted. SR on tele monitor. Left hand #20 patent and flushed w/ NS infusing at 100ml/hr. Right wrist band noted. Right groin dressing noted. Pulses strong. Safety measures in place. Will continue to monitor.
--- NOTE | 2020-11-03 19:45 | NUR ---
CLOUD SUBJECT MATTER EXPERT NOTE: Removed 2ml of air from RATB. No bleeding noted. Will continue to monitor.
--- NOTE | 2020-11-03 20:05 | NUR ---
MATERIALS SPECIALIST NOTE: Removed 2ml of air from RATB. No bleeding noted. Will continue to monitor.
--- NOTE | 2020-11-03 20:40 | NUR ---
GINNING OPERATOR NOTE: Removed 2ml of air from RATB. No bleeding noted. Will continue to monitor.
--- NOTE | 2020-11-03 21:10 | NUR ---
DOUBLE END TENONER OPERATOR NOTE: Removed 2ml of air from RATB. Minimal bleeding noted, about 2-5mm. Inflated 2ml of air back. Will continue to monitor.
--- NOTE | 2020-11-03 21:17 | NUR ---
SPREADER OPERATOR NOTE: 2039: Pt c/o of being hungry. NPO except meds currently ordered as diet. Paged corsets salesperson, Devi Souza ENGLISH TEACHER to see if we can resume pt's previous diet. Stated to reach out to the provider who performed procecudure earlier today. 2049: Paged Dr. Temple and asked if we can resume previous diet. 2115: Dr. Temple responded to resume diet. Order noted and carried out.
[2020-11-03] MEDS: GABAPENTIN 100 MG CAPSULE PO SCH (21:20)
[2020-11-03] MEDS: MIRTAZAPINE 15 MG TABLET PO SCH (21:20)
--- NOTE | 2020-11-03 21:40 | NUR ---
GAS METER INSTALLER HELPER NOTE: Removed 2ml of air from RATB. No bleeding noted. Will continue to monitor.
--- NOTE | 2020-11-03 22:05 | NUR ---
REMOTE INPATIENT CODER NOTE: Removed 2ml of air from RATB. No bleeding noted. Removed RATB per orders. Charge nurse aware. Will continue to monitor.
--- NOTE | 2020-11-03 22:37 | NUR ---
STOCK SHIPPER NOTE: Pt refused bed bath and linen change for tonight.
[2020-11-04] VITALS (23 sets, daily range): BP systolic 90–144; BP diastolic 41–107
[2020-11-04] MEDS: IV NS 0.9% 1,000 ML IV PRN ×2 (03:49→18:34)
[2020-11-04 04:45] LABS: BASOPHILS % (AUTO) 0.3 % (0.0-2.0); EOSINOPHILS % (AUTO) 0.6 % (0.0-6.0); HEMATOCRIT 36 % (33-45); HEMOGLOBIN 11.9 g/dL (11.5-14.8); LYMPHOCYTES # (AUTO) 2.2 /CMM (0.8-4.8); LYMPHOCYTES % (AUTO) 20.5 % (20.0-44.0); MEAN CORPUSCULAR HGB CONC 33 g/dl (31.0-36.0); MEAN CORPUSCULAR VOLUME 88 fL (82-100); MONOCYTES # (AUTO) 0.7 /CMM (0.1-1.30); MONOCYTES % (AUTO) 6.4 % (2.0-12.0); NEUTROPHILS # (AUTO) 7.7 /CMM (1.8-8.9); NEUTROPHILS % (AUTO) 72.2 % (43.0-81.0); PLATELET COUNT (AUTO) 298 /CMM (150-450); WHITE BLOOD COUNT (AUTO) 10.7 K/uL (4.3-11.0)
[2020-11-04 05:12] LABS: CALCIUM, SERUM 10.1 mg/dL (8.5-10.1); CREATININE 1.2 mg/dL (0.6-1.3); POTASSIUM 3.8 mmol/L (3.5-5.1)
[2020-11-04] MEDS: TICAGRELOR 90 MG TABLET PO SCH ×3 (06:02→17:18)
[2020-11-04] MEDS: METOPROLOL TARTRATE 50 MG TABLET PO SCH ×4 (06:02→17:50)
[2020-11-04] MEDS: PANTOPRAZOLE 40 MG TABLET.DR PO SCH (07:24)
--- NOTE | 2020-11-04 07:35 | NUR ---
FNPS: pt.is A/Ox3, no c/o now, no pain, SR, SBP over 100/below 150, BG 175 now, O2sat. over 96%, no SOB, no any bleeding, no pain over night reported by night nurse, urinates, IVF NS 100ml/h, ok to start cardiac diet, is in room/updated
[2020-11-04] MEDS: INSULIN REGULAR, HUMAN 100 UNIT/ML 3 ML VIAL SQ PRN ×2 (07:37→12:33)
[2020-11-04] MEDS: BLOOD SUGAR DIAGNOSTIC 1 EACH STRIP IN SCH ×4 (07:37→22:05)
--- NOTE | 2020-11-04 08:23 | NUR ---
BLOW PIT HELPER: is in room, updated with pt.current condition, c/o, VS, IVF, I/O, all meds, see new orders, pt.is going for second cathlab on Friday
[2020-11-04] MEDS: ENOXAPARIN SODIUM 40 MG/0.4 ML DISP.SYRIN SQ SCH (08:39)
[2020-11-04] MEDS: INSULIN GLARGINE, 100 UNIT/ML CARTRIDGE SQ SCH (08:41)
[2020-11-04] MEDS: ISOSORBIDE MONONITRATE (30MG) 30 MG TAB.SR.24H PO SCH (08:44)
[2020-11-04] MEDS: AMLODIPINE BESYLATE 10 MG TABLET PO SCH (08:44)
[2020-11-04] MEDS: CALCIUM CARB 600MG /VIT D 1 EACH TABLET PO SCH ×2 (08:44→17:14)
[2020-11-04] MEDS: hydrOXYzine 10 MG TABLET PO SCH ×3 (08:44→17:15)
[2020-11-04] MEDS: FOLIC ACID 1 MG TABLET PO SCH (08:44)
[2020-11-04] MEDS: LINAGLIPTIN 5 MG TABLET PO SCH (08:45)
[2020-11-04] MEDS: HYDROCHLOROTHIAZIDE 25 MG TABLET PO SCH (08:45)
[2020-11-04] MEDS: GEMFIBROZIL 600 MG TABLET PO SCH ×3 (08:45→17:15)
[2020-11-04] MEDS: EZETIMIBE 10 MG TABLET PO SCH (08:45)
[2020-11-04] MEDS: CARVEDILOL 6.25 MG TABLET PO SCH ×2 (08:45→20:45)
[2020-11-04] MEDS: CILOSTAZOL 100 MG TABLET PO SCH ×3 (08:46→17:17)
--- NOTE | 2020-11-04 08:48 | NUR ---
ELECTRICAL EQUIPMENT TECHNICIAN: ordered: d/c Melissa
[2020-11-04] MEDS: SERTRALINE HCL 50 MG TABLET PO SCH (08:53)
[2020-11-04] MEDS: MEMANTINE HCL 5 MG TABLET PO SCH ×2 (08:53→17:15)
[2020-11-04] MEDS: METFORMIN 500 MG TABLET PO SCH ×2 (08:54→17:14)
[2020-11-04] MEDS: LOSARTAN POTASSIUM 50 MG TABLET PO SCH (08:54)
[2020-11-04] MEDS: ATORVASTATIN 10 MG TABLET PO SCH (09:01)
--- NOTE | 2020-11-04 10:20 | NUR ---
FLY FISHING GUIDE: pt.is transferred to Tele after full report was given for LIZET Bolton
--- NOTE | 2020-11-04 10:25 | NUR ---
RANCH HELPERMOLD ENGRAVER NOTES RECEIVED TRANSFER FROM ICU. PATIENT MEDICALLY STABLE. WILL CONTINUE TO MONITOR.
[2020-11-04] MEDS: ASPIRIN EC 81 MG TABLET.DR PO SCH (17:14)
--- NOTE | 2020-11-04 18:41 | NUR ---
MS RN CLOSING NOTES PATIENT REMAINS IN BED, AWAKE A/O X3. PATIENT ON 2LPM VIA NASAL CANULA; BREATHING EVEN AND UNLABORED; NO SOB NOTED. NO COMPLAINS OF PAIN. TELE MONITOR WITH A CURRENT READING OF SR 91. L WRIST IV ACCESS G # 20 PRESENT AND INTACT INFUSING NS @ 100 ML/HR. ALL NEEDS ATTENDED THROUGHOUT THE DAY. SAFETY PRECAUTIONS IN PLACE; BED IN LOW POSITION AND LOCKED, RAILS UP X2, CALL LIGHT WITHIN REACH. WILL ENDORSE TO GOLD BUYER NURSE.
--- NOTE | 2020-11-04 19:25 | NUR ---
RN NOTES PATIENT REMAINS IN BED, AWAKE A/O X3. PATIENT ON 2LPM VIA NASAL CANULA; BREATHING EVEN AND UNLABORED; NO SOB NOTED. NO COMPLAINS OF PAIN. TELE MONITOR WITH A CURRENT READING OF SR 91. L WRIST IV ACCESS G # 20 PRESENT AND INTACT INFUSING NS @ 100 ML/HR. ALL NEEDS ATTENDED AT THIS TIME. SAFETY PRECAUTIONS IN PLACE; BED IN LOW POSITION AND LOCKED, RAILS UP X2, CALL LIGHT WITHIN REACH. WILL CONTINUE TO MONITOR.
[2020-11-04] MEDS: MIRTAZAPINE 15 MG TABLET PO SCH (21:13)
[2020-11-04] MEDS: GABAPENTIN 100 MG CAPSULE PO SCH (21:13)
[2020-11-05] VITALS (8 sets, daily range): BP systolic 104–134; BP diastolic 52–72
[2020-11-05] MEDS: METOPROLOL TARTRATE 50 MG TABLET PO SCH ×4 (00:35→17:08)
[2020-11-05] MEDS: IV NS 0.9% 1,000 ML IV PRN (04:00)
[2020-11-05 05:54] LABS: BASOPHILS % (AUTO) 0.2 % (0.0-2.0); EOSINOPHILS % (AUTO) 2.2 % (0.0-6.0); HEMATOCRIT 30 % (33-45); HEMOGLOBIN 9.8 g/dL (11.5-14.8); LYMPHOCYTES # (AUTO) 2.8 /CMM (0.8-4.8); LYMPHOCYTES % (AUTO) 35.2 % (20.0-44.0); MEAN CORPUSCULAR HGB CONC 33 g/dl (31.0-36.0); MEAN CORPUSCULAR VOLUME 90 fL (82-100); MONOCYTES # (AUTO) 0.5 /CMM (0.1-1.30); MONOCYTES % (AUTO) 6.2 % (2.0-12.0); NEUTROPHILS # (AUTO) 4.5 /CMM (1.8-8.9); NEUTROPHILS % (AUTO) 56.2 % (43.0-81.0); PLATELET COUNT (AUTO) 234 /CMM (150-450); RED BLOOD CELL COUNT(AUTO) 3.35 MIL/uL (4.0-5.2)
[2020-11-05 06:17] LABS: POTASSIUM 3.4 mmol/L (3.5-5.1)
[2020-11-05] MEDS: BLOOD SUGAR DIAGNOSTIC 1 EACH STRIP IN SCH ×4 (06:36→21:53)
--- NOTE | 2020-11-05 06:54 | NUR ---
RN NOTES PATIENT REMAINS IN BED, AWAKE A/O X3. PATIENT ON ROOM AIR BREATHING EVEN AND UNLABORED; NO SOB NOTED. NO COMPLAINS OF PAIN. L WRIST IV ACCESS G # 20 PRESENT AND INTACT INFUSING NS @ 100 ML/HR. ALL NEEDS ATTENDED AT THIS TIME. SAFETY PRECAUTIONS IN PLACE; BED IN LOW POSITION AND LOCKED, RAILS UP X2, CALL LIGHT WITHIN REACH. WILL ENDORSE CARE.
--- NOTE | 2020-11-05 08:16 | NUR ---
MS/RN Opening note Patient recieved from rn shift mgr. Sleeping soundly at this time, appears in no distress or discomfort. Call light within reach, will continue to monitor and ensure safety.
[2020-11-05] MEDS: METFORMIN 500 MG TABLET PO SCH ×2 (09:00→17:07)
[2020-11-05] MEDS: INSULIN GLARGINE, 100 UNIT/ML CARTRIDGE SQ SCH (09:00)
--- NOTE | 2020-11-05 09:00 | NUR ---
MS/RN S/B Dr Brennan Seen by MD - labs ordered for tomorrow.
[2020-11-05] MEDS: GEMFIBROZIL 600 MG TABLET PO SCH ×2 (09:03→17:07)
[2020-11-05] MEDS: MEMANTINE HCL 5 MG TABLET PO SCH ×2 (09:03→17:07)
[2020-11-05] MEDS: CALCIUM CARB 600MG /VIT D 1 EACH TABLET PO SCH ×2 (09:03→17:06)
[2020-11-05] MEDS: FOLIC ACID 1 MG TABLET PO SCH (09:04)
[2020-11-05] MEDS: hydrOXYzine 10 MG TABLET PO SCH ×2 (09:04→17:07)
[2020-11-05] MEDS: EZETIMIBE 10 MG TABLET PO SCH (09:04)
[2020-11-05] MEDS: ATORVASTATIN 10 MG TABLET PO SCH (09:04)
[2020-11-05] MEDS: ISOSORBIDE MONONITRATE (30MG) 30 MG TAB.SR.24H PO SCH (09:04)
[2020-11-05] MEDS: ASPIRIN EC 81 MG TABLET.DR PO SCH (09:04)
[2020-11-05] MEDS: PANTOPRAZOLE 40 MG TABLET.DR PO SCH (09:04)
[2020-11-05] MEDS: LINAGLIPTIN 5 MG TABLET PO SCH (09:04)
[2020-11-05] MEDS: SERTRALINE HCL 50 MG TABLET PO SCH (09:04)
[2020-11-05] MEDS: LOSARTAN POTASSIUM 50 MG TABLET PO SCH (09:05)
[2020-11-05] MEDS: AMLODIPINE BESYLATE 10 MG TABLET PO SCH (09:05)
[2020-11-05] MEDS: HYDROCHLOROTHIAZIDE 25 MG TABLET PO SCH (09:05)
[2020-11-05] MEDS: CARVEDILOL 6.25 MG TABLET PO SCH ×2 (09:05→21:20)
[2020-11-05] MEDS: ENOXAPARIN SODIUM 40 MG/0.4 ML DISP.SYRIN SQ SCH (09:12)
[2020-11-05] MEDS: TICAGRELOR 90 MG TABLET PO SCH ×2 (09:14→17:09)
[2020-11-05] MEDS: CILOSTAZOL 100 MG TABLET PO SCH ×2 (09:14→17:09)
[2020-11-05] MEDS: POTASSIUM CHLORIDE 20 MEQ TAB.PRT.SR PO SCH ×2 (09:17→10:00)
--- NOTE | 2020-11-05 10:10 | NUR ---
MS/RN S/B Dr Reyes Seen by Dr Reyes - potassium replaced.
[2020-11-05] MEDS: INSULIN REGULAR, HUMAN 100 UNIT/ML 3 ML VIAL SQ PRN ×2 (12:04→17:15)
--- NOTE | 2020-11-05 13:55 | NUR ---
MS/RN S/B Dr Temple Seen by MD - patient to be NPO from midnight and consented for stenting of proximal RCA.
--- NOTE | 2020-11-05 14:15 | NUR ---
MS/RN Consent Daughter called to obtain consent for procedure scheduled for tomorrow. No answer, will retry. -Lisa
--- NOTE | 2020-11-05 17:30 | NUR ---
MS/RN Consent Second call placed to daughter to obtain telephone consent for cardiac cath scheduled for 1330 tomorrow.
--- NOTE | 2020-11-05 18:44 | NUR ---
MS/RN End note Patient remains in stable condition. Needs to be NPO from midnight, for procedure scheduled for tomorrow at 1330. Family called to obtain consent, awaiting call back. Will endorse to sociology teacher.
--- NOTE | 2020-11-05 19:15 | NUR ---
RN NOTES PATIENT REMAINS IN BED, AWAKE A/O X3. PATIENT ON ROOM AIR TOLERATING WELL BREATHING EVEN AND UNLABORED; NO SOB NOTED. NO COMPLAINS OF PAIN. L WRIST IV ACCESS G # 20 PRESENT AND INTACT INFUSING NS @ 100 ML/HR. ALL NEEDS ATTENDED AT THIS TIME. SAFETY PRECAUTIONS IN PLACE; BED IN LOW POSITION AND LOCKED, RAILS UP X2, CALL LIGHT WITHIN REACH. WILL CONTINUE TO MONITOR.
--- NOTE | 2020-11-05 19:33 | NUR ---
RN NOTES CALLED ADITHYA LIVINGSTON FOR CONSENT FOR PROCEDURE NO ANSWER LEFT A MESSAGE. WILL TRY TO CALL AGAIN LATER.
--- NOTE | 2020-11-05 19:48 | NUR ---
RN NOTES CALLED DAUGHTER FOR CONSENT OF PROCEDURE NO ANSWER LEFT A MESSAGE WILL TRY AGAIN LATER.
[2020-11-05] MEDS: GABAPENTIN 100 MG CAPSULE PO SCH (21:19)
[2020-11-05] MEDS: MIRTAZAPINE 15 MG TABLET PO SCH (21:19)
--- NOTE | 2020-11-05 21:54 | NUR ---
RN NOTES BLOOD SUGAR CHECKED NO INSULIN COVERAGE PROVIDED PT NPO FOR MORNING PROCEDURE.
--- NOTE | 2020-11-05 23:00 | NUR ---
RN NOTES CALLED DAUGHTER FOR CONSENT FOR PROCEDURE DID NOT ANSWER.
[2020-11-06] VITALS (22 sets, daily range): BP systolic 92–156; BP diastolic 55–94
[2020-11-06] MEDS: METOPROLOL TARTRATE 50 MG TABLET PO SCH ×4 (00:44→17:48)
[2020-11-06 05:46] LABS: BASOPHILS % (AUTO) 0.5 % (0.0-2.0); EOSINOPHILS % (AUTO) 3.4 % (0.0-6.0); HEMATOCRIT 34 % (33-45); HEMOGLOBIN 11.2 g/dL (11.5-14.8); LYMPHOCYTES # (AUTO) 2.5 /CMM (0.8-4.8); LYMPHOCYTES % (AUTO) 30.9 % (20.0-44.0); MEAN CORPUSCULAR HGB CONC 33 g/dl (31.0-36.0); MEAN CORPUSCULAR VOLUME 89 fL (82-100); MONOCYTES # (AUTO) 0.5 /CMM (0.1-1.30); MONOCYTES % (AUTO) 6.7 % (2.0-12.0); NEUTROPHILS # (AUTO) 4.7 /CMM (1.8-8.9); NEUTROPHILS % (AUTO) 58.5 % (43.0-81.0); PLATELET COUNT (AUTO) 270 /CMM (150-450); RED BLOOD CELL COUNT(AUTO) 3.85 MIL/uL (4.0-5.2)
[2020-11-06 06:03] LABS: CALCIUM, SERUM 9.3 mg/dL (8.5-10.1); CREATININE 0.8 mg/dL (0.6-1.3); POTASSIUM 3.6 mmol/L (3.5-5.1)
[2020-11-06] MEDS: BLOOD SUGAR DIAGNOSTIC 1 EACH STRIP IN SCH ×4 (06:25→21:05)
--- NOTE | 2020-11-06 06:25 | NUR ---
RN NOTES NO INSULIN COVERAGE PROVIDED PT IS NPO FOR PROCEDURE TODAY. WILL CONTINUE OT MONITOR
--- NOTE | 2020-11-06 06:38 | NUR ---
RN NOTES PATIENT REMAINS IN BED, AWAKE A/O X3. PATIENT ON ROOM AIR TOLERATING WELL BREATHING EVEN AND UNLABORED; NO SOB NOTED. NO COMPLAINS OF PAIN. L WRIST IV ACCESS G # 20 PRESENT AND INTACT INFUSING NS @ 100 ML/HR. ALL NEEDS ATTENDED AT THIS TIME. SAFETY PRECAUTIONS IN PLACE; BED IN LOW POSITION AND LOCKED, RAILS UP X2, CALL LIGHT WITHIN REACH. WILL ENDORSE CARE TO DAYSHIFT.
--- NOTE | 2020-11-06 06:54 | NUR ---
RN NOTES CALLED DAUGHTER NO ANSWER. WILL ENDORSE TO DAY SHIFT TO CALL DAUGHTER TO OBTAIN CONSENT FOR PROCEDURE.
--- NOTE | 2020-11-06 07:00 | NUR ---
RN OPENING NOTES RECEIVED PT AWAKE IN BED AT THIS TIME. AOX3-4, PT ABLE TO MAKE NEEDS KNOWN, MACANESE SPEAKING. PT STABLE ON RA. PT NOTED ON EXTERNAL FRACTIONATION PLANT SUPERVISOR READING SR 73. NO SOB NOTED, NO SIGN OF ANY ACUTE DISTRESS NOTED, NO C/O PAIN AT THIS TIME. IV ACCESS NOTED IN LEFT WRIST G#20, INTACT, PATENT AND FLUSHING WELL. ASPIRATIONS AND SAFETY PRECAUTIONS IN PLACE AND MAINTAINED AT ALL TIMES. BED IN LOWEST LOCKED POSITION, SIDE RAILS UP, HOB ELEVATED, TABLE AND CALL LIGHT WITHIN REACH. WILL CONTINUE TO MONITOR
--- NOTE | 2020-11-06 07:10 | NUR ---
APPLE SORTER CLOSING NOTES PATIENT IS S/P STENT PLACEMENT PROXIMAL RCA(LEFT FEMORAL) FROM EDGE CUTTER. PATIENT AXOX3, PT ABLE TO MAKE NEEDS KNOWN, CYPRIOT SPEAKING. VITAL SIGNS STABLE .ON ROOM AIR ,SATURATING 98-100%. NO SOB , NO SIGN OF ANY ACUTE DISTRESS NOTED. NO C/O PAIN AT THIS TIME. IV ACCESS NOTED IN LEFT WRIST G#20, INTACT, PATENT WITH IVF NS@100ML/HR X 6 HRS. ASPIRATIONS AND SAFETY PRECAUTIONS IN PLACE AND MAINTAINED . BED IN LOWEST LOCKED POSITION, SIDE RAILS UP.CALL LIGHT WITHIN REACH. LEFT FEMORAL SITE DRESSING WITH MILD STAINING WITH BLOOD.APTT IS WITH IN NORMAL LEVEL.REPORT GIVEN TO PM NURSE FOR MARISA. Addendum: 11/06/20 at 1911 by CARMELA CORTES RN 11/06/2020 WRONG TIME ENTERED.ACTUAL TIME 1909.
[2020-11-06] MEDS: PANTOPRAZOLE 40 MG TABLET.DR PO SCH (07:57)
[2020-11-06] MEDS: ENOXAPARIN SODIUM 40 MG/0.4 ML DISP.SYRIN SQ SCH (08:00)
[2020-11-06] MEDS: IV NS 0.9% 1,000 ML IV PRN ×2 (08:59→13:17)
[2020-11-06] MEDS: hydrOXYzine 10 MG TABLET PO SCH ×2 (09:00→16:33)
[2020-11-06] MEDS ORDERED: ERGOCALCIFEROL (VITAMIN D 2) 50,000 UNIT CAPSULE PO SCH (09:00)
[2020-11-06] MEDS: METFORMIN 500 MG TABLET PO SCH ×2 (09:00→16:32)
[2020-11-06] MEDS ORDERED: CYANOCOBALAMIN 1,000 MCG/ML VIAL IM SCH (09:00)
[2020-11-06] MEDS: CILOSTAZOL 100 MG TABLET PO SCH ×2 (09:00→16:33)
[2020-11-06] MEDS: CARVEDILOL 6.25 MG TABLET PO SCH ×2 (09:00→21:03)
[2020-11-06] MEDS: CALCIUM CARB 600MG /VIT D 1 EACH TABLET PO SCH ×2 (09:01→16:32)
[2020-11-06] MEDS: ASPIRIN EC 81 MG TABLET.DR PO SCH (09:01)
[2020-11-06] MEDS: LINAGLIPTIN 5 MG TABLET PO SCH (09:01)
[2020-11-06] MEDS: ISOSORBIDE MONONITRATE (30MG) 30 MG TAB.SR.24H PO SCH (09:01)
[2020-11-06] MEDS: SERTRALINE HCL 50 MG TABLET PO SCH (09:01)
[2020-11-06] MEDS: FOLIC ACID 1 MG TABLET PO SCH (09:01)
[2020-11-06] MEDS: MEMANTINE HCL 5 MG TABLET PO SCH ×2 (09:01→16:32)
[2020-11-06] MEDS: GEMFIBROZIL 600 MG TABLET PO SCH ×2 (09:01→16:32)
[2020-11-06] MEDS: AMLODIPINE BESYLATE 10 MG TABLET PO SCH (09:02)
[2020-11-06] MEDS: LOSARTAN POTASSIUM 50 MG TABLET PO SCH (09:02)
[2020-11-06] MEDS: EZETIMIBE 10 MG TABLET PO SCH (09:02)
[2020-11-06] MEDS: ATORVASTATIN 10 MG TABLET PO SCH (09:03)
[2020-11-06] MEDS: HYDROCHLOROTHIAZIDE 25 MG TABLET PO SCH (09:22)
[2020-11-06] MEDS: TICAGRELOR 90 MG TABLET PO SCH ×2 (09:23→16:33)
--- NOTE | 2020-11-06 09:25 | NUR ---
PT SCHEDULED FOR CARDIAC STENT, PER DR NIXON, HOLD LOVENOX, ADMINISTER BRILINTA. ORDERS CARRIED OUT. WILL CONTINUE TO LORRAINE
[2020-11-06] MEDS: INSULIN GLARGINE, 100 UNIT/ML CARTRIDGE SQ SCH (09:36)
[2020-11-06] MEDS ORDERED: IV NS 0.9% 1,000 ML ONE (11:20)
[2020-11-06] MEDS ORDERED: IODIXANOL 150 ML IV ONE (11:20)
[2020-11-06] MEDS ORDERED: IV SET PRIMARY PUMP SET 1 EA INFUS.SET MC ONE ×2 (11:20→12:20)
[2020-11-06] MEDS ORDERED: MIDAZOLAM HCL 2 MG/2ML VIAL ONE (11:22)
[2020-11-06] MEDS ORDERED: FENTANYL PF 100MCG/2ML AMPUL ONE (11:22)
[2020-11-06] MEDS ORDERED: LIDOCAINE HCL/MPF 1% 30 ML VIAL IJ ONE (11:27)
[2020-11-06] MEDS ORDERED: IODIXANOL 320MG/ML 50 ML IV ONE (11:46)
[2020-11-06] MEDS ORDERED: HEPARIN SODIUM, PORCINE 1,000 UNIT/ML VIAL ONE (12:15)
[2020-11-06] MEDS ORDERED: HEPARIN SODIUM, PORCINE 5000 UNITS/1 ML VIAL ONE (12:15)
[2020-11-06] MEDS ORDERED: PHENYLEPHRINE 10 MG/ML VIAL ONE (12:19)
--- NOTE | 2020-11-06 13:15 | NUR ---
TIRE TRUCKER NOTES RECEIVED FROM SLIP COVER ESTIMATOR.S/P STENT PLACEMENT PROXIMAL RCA(LEFT FEMORAL). PATIENT AXOX3, PT ABLE TO MAKE NEEDS KNOWN, UPPER SORBIAN SPEAKING. VITAL SIGNS STABLE .ON ROOM AIR ,SATURATING 98-100%. NO SOB , NO SIGN OF ANY ACUTE DISTRESS NOTED. NO C/O PAIN AT THIS TIME. IV ACCESS NOTED IN LEFT WRIST G#20, INTACT, PATENT AND FLUSHING WELL. ASPIRATIONS AND SAFETY PRECAUTIONS IN PLACE AND MAINTAINED . BED IN LOWEST LOCKED POSITION, SIDE RAILS UP,PATIENT TO BE ON FLAT POSITION FOR 4 HRS, CALL LIGHT WITHIN REACH. LEFT FEMORAL SITE DRESSING PARTIALLY STAINED WITH BLOOD..EDUCATED PATIENT NOT TO MOVE LEFT LEG.WILL MONITOR FOR ANY CHANGES
--- NOTE | 2020-11-06 13:50 | NUR ---
PT IN ICU FROM STRIPER MACHINE, ALL MEDICATIONS, BELONGINGS AND REPORTED GIVEN TO SHANIA CELLOPHANE CASTING MACHINE REPAIRER AT BEDSIDE. WILL CONTINUE WITH PLAN OF CARE
--- NOTE | 2020-11-06 14:15 | NUR ---
ROLLER HELPER NOTE PATIENT FEMORAL DRESSING IS FULLY STAINED WITH BLOOD.NEW PRESSURE DRESSING APPLIED.WILL CONTINUE TO MONITOR.VITAL SIGNS STABLE.
--- NOTE | 2020-11-06 17:00 | NUR ---
AGILE DEVELOPER NOTE PATIENT LEFT FEMORAL SITE STILL BLEEDING .DRESSING SOAKED WITH BLOOD. MADE AWARE.GOT NEW ORDER FOR APTT AND TO APPLY PRESSURE FOR 5-7MIN,TO MONITOR.PRESSURE DRESSING APPLIED .WILL CONTINUE TO MONITOR.
--- NOTE | 2020-11-06 19:10 | NUR ---
NURSING ADMIN CLOSING NOTES PATIENT IS S/P STENT PLACEMENT PROXIMAL RCA(LEFT FEMORAL) FROM WOOD CARVER. PATIENT AXOX3, PT ABLE TO MAKE NEEDS KNOWN, BERMUDIAN SPEAKING. VITAL SIGNS STABLE .ON ROOM AIR ,SATURATING 98-100%. NO SOB , NO SIGN OF ANY ACUTE DISTRESS NOTED. NO C/O PAIN AT THIS TIME. IV ACCESS NOTED IN LEFT WRIST G#20, INTACT, PATENT WITH IVF NS@100ML/HR X 6 HRS. ASPIRATIONS AND SAFETY PRECAUTIONS IN PLACE AND MAINTAINED . BED IN LOWEST LOCKED POSITION, SIDE RAILS UP.CALL LIGHT WITHIN REACH. LEFT FEMORAL SITE DRESSING WITH MILD STAINING WITH BLOOD.APTT IS WITH IN NORMAL LEVEL.REPORT GIVEN TO PM NURSE FOR MARIAS.
[2020-11-06] MEDS: GABAPENTIN 100 MG CAPSULE PO SCH (21:03)
[2020-11-06] MEDS: MIRTAZAPINE 15 MG TABLET PO SCH (21:05)
[2020-11-07] VITALS (27 sets, daily range): BP systolic 89–134; BP diastolic 51–73
[2020-11-07] MEDS: METOPROLOL TARTRATE 50 MG TABLET PO SCH ×2 (00:12→06:17)
[2020-11-07 04:31] LABS: BASOPHILS % (AUTO) 0.4 % (0.0-2.0); EOSINOPHILS % (AUTO) 3.3 % (0.0-6.0); HEMATOCRIT 33 % (33-45); HEMOGLOBIN 11.2 g/dL (11.5-14.8); LYMPHOCYTES # (AUTO) 1.8 /CMM (0.8-4.8); LYMPHOCYTES % (AUTO) 17.3 % (20.0-44.0); MEAN CORPUSCULAR HGB CONC 34 g/dl (31.0-36.0); MEAN CORPUSCULAR VOLUME 88 fL (82-100); MONOCYTES # (AUTO) 0.7 /CMM (0.1-1.30); MONOCYTES % (AUTO) 6.4 % (2.0-12.0); NEUTROPHILS # (AUTO) 7.4 /CMM (1.8-8.9); NEUTROPHILS % (AUTO) 72.6 % (43.0-81.0); PLATELET COUNT (AUTO) 288 /CMM (150-450); RED BLOOD CELL COUNT(AUTO) 3.79 MIL/uL (4.0-5.2); WHITE BLOOD COUNT (AUTO) 10.2 K/uL (4.3-11.0)
[2020-11-07 04:41] LABS: CALCIUM, SERUM 9.1 mg/dL (8.5-10.1); CREATININE 0.8 mg/dL (0.6-1.3); POTASSIUM 3.3 mmol/L (3.5-5.1)
[2020-11-07] MEDS: BLOOD SUGAR DIAGNOSTIC 1 EACH STRIP IN SCH ×2 (07:26→12:07)
--- NOTE | 2020-11-07 07:30 | NUR ---
OIL RIG DRILLER OPENING NOTES RECEIVED REPORT FROM PM NURSE.PATIENT IS S/P STENT PLACEMENT PROXIMAL RCA(LEFT FEMORAL) FROM GOVERNMENT GUARD. PATIENT AXOX3, PT ABLE TO MAKE NEEDS KNOWN, WALLISIAN SPEAKING. VITAL SIGNS STABLE .ON ROOM AIR ,SATURATING 98%. NO SOB , NO SIGN OF ANY ACUTE DISTRESS NOTED. NO C/O PAIN AT THIS TIME. IV ACCESS NOTED IN LEFT WRIST G#20, INTACT, PATENT. ASPIRATIONS AND SAFETY PRECAUTIONS IN PLACE AND MAINTAINED . BED IN LOWEST LOCKED POSITION, SIDE RAILS UP.CALL LIGHT WITHIN REACH. LEFT FEMORAL SITE DRESSING INTACT AND DRY.WILL CONTINUE TO MONITOR.
[2020-11-07] MEDS: PANTOPRAZOLE 40 MG TABLET.DR PO SCH (07:35)
[2020-11-07] MEDS: INSULIN REGULAR, HUMAN 100 UNIT/ML 3 ML VIAL SQ PRN ×2 (07:39→12:18)
[2020-11-07] MEDS: CALCIUM CARB 600MG /VIT D 1 EACH TABLET PO SCH (08:32)
[2020-11-07] MEDS: CILOSTAZOL 100 MG TABLET PO SCH (08:32)
[2020-11-07] MEDS: ISOSORBIDE MONONITRATE (30MG) 30 MG TAB.SR.24H PO SCH (08:33)
[2020-11-07] MEDS: SERTRALINE HCL 50 MG TABLET PO SCH (08:33)
[2020-11-07] MEDS: ASPIRIN EC 81 MG TABLET.DR PO SCH (08:33)
[2020-11-07] MEDS: AMLODIPINE BESYLATE 10 MG TABLET PO SCH (08:33)
[2020-11-07] MEDS: MEMANTINE HCL 5 MG TABLET PO SCH (08:33)
[2020-11-07] MEDS: hydrOXYzine 10 MG TABLET PO SCH (08:33)
[2020-11-07] MEDS: FOLIC ACID 1 MG TABLET PO SCH (08:33)
[2020-11-07] MEDS: ENOXAPARIN SODIUM 40 MG/0.4 ML DISP.SYRIN SQ SCH (08:35)
[2020-11-07] MEDS ORDERED: CARVEDILOL 6.25 MG TABLET PO SCH (09:00)
[2020-11-07] MEDS: GEMFIBROZIL 600 MG TABLET PO SCH (09:27)
[2020-11-07] MEDS: LOSARTAN POTASSIUM 50 MG TABLET PO SCH (09:27)
[2020-11-07] MEDS: EZETIMIBE 10 MG TABLET PO SCH (09:27)
[2020-11-07] MEDS: TICAGRELOR 90 MG TABLET PO SCH (09:27)
[2020-11-07] MEDS: ATORVASTATIN 10 MG TABLET PO SCH (09:27)
[2020-11-07] MEDS: POTASSIUM CHLORIDE 20 MEQ TAB.PRT.SR PO SCH ×2 (09:28→10:34)
[2020-11-07] MEDS: LINAGLIPTIN 5 MG TABLET PO SCH (09:29)
[2020-11-07] MEDS: INSULIN GLARGINE, 100 UNIT/ML CARTRIDGE SQ SCH (09:31)
[2020-11-07] MEDS: METFORMIN 500 MG TABLET PO SCH (09:35)
[2020-11-07] MEDS ORDERED: TICA90TA PO (09:56)
--- NOTE | 2020-11-07 10:30 | NUR ---
PARTITION NOTCHER NOTE PATIENT'S LEFT FEMORAL SITE DRESSING SATURATED WITH BLOOD.DRESSING CHANGED.NEW PRESSURE DRESSING APPLIED. MADE AWARE.WILL CONTINUE TO MONITOR.
--- NOTE | 2020-11-07 13:00 | NUR ---
GELATIN POWDER MIXER NOTE PATIENT LEFT FEMORAL SITE DRESSING IS DRY.NO MORE BLEEDING NOTED.WILL CONTINUE TO MONITOR.
--- NOTE | 2020-11-07 15:45 | NUR ---
MOLD YARD CRANE OPERATOR NOTE DISCHARGE INSTRUCTIONS GIVEN TO THE PATIENT.NEW PRESCRIPTION SEND TO THE PATIENT'S PHARMACY([facility] IN [place]).CALL MADE TO PHARMACY ,THEY TOLD THAT MEDICATION DELIVERED TO PATIENT'S HOME. CASSY RN SPOKE TO PATIENT FAMILY DAUGHTER KATIE TOLD THAT THEY RECEIVED NEW MEDICATION AND DISCHARGE INSTRUCTIONS GIVEN WITH NEW MEDICATION EDUCATION .SIGNED BELONGING LIST BY PATIENT .CONFIRMED ALL BELONGINGS.WAITING FOR DAUGHTER TO BRING PATIENT'S CLOTH.
--- NOTE | 2020-11-07 16:20 | NUR ---
THEATRE ARTS PROFESSORMACHINE COMPOSITOR NOTE PATIENT D/C HOME WITH DAUGHTER KATIE .TOOK ALL BELONGINGS.NO BLEEDING FROM THE FEMORAL SITE.DRESSING DRY.VITAL SIGNS STABLE.NO SOB NO DISTRESS,NO CHEST PAIN NOTED.IV REMOVED.DRESSING APPLIED.PATIENT AND FAMILY VERBALIZED UNDERSTANDING OF DISCHARGE INSTRUCTIONS.DISCHARGE PACKET GIVEN TO THE DAUGHTER WITH FOLLOW UP INSTRUCTIONS FOR PRIMARY,CARDIOLOGY AND PULMONARY DOCTOR.ACCOMPANIED BY HISTORIC SITES SUPERVISOR FOR DISCHARGE.
== END 2020-11-07 16:20 | disposition home or self-care (01) | DRG 246 ==
LOC: ER 00:54 → TELE 01:54 → ICU 11-03 15:03 → TELE 11-04 10:19 → ICU 11-06 13:07
PROVIDERS: ADMIT Family Medicine; ATTEND Internal Medicine
PROC: 027135Z Dilation of Coronary Artery, Two Arteries with Two Drug-eluting Intraluminal Devices, Percutaneous Approach (ICD-10-PCS; principal; 2020-11-03)
PROC: 4A023N7 Measurement of Cardiac Sampling and Pressure, Left Heart, Percutaneous Approach (ICD-10-PCS; 2020-11-03)
PROC: B211YZZ Fluoroscopy of Multiple Coronary Arteries using Other Contrast (ICD-10-PCS; 2020-11-03)
PROC: B41FYZZ Fluoroscopy of Right Lower Extremity Arteries using Other Contrast (ICD-10-PCS; 2020-11-03)
PROC: B31HYZZ Fluoroscopy of Right Upper Extremity Arteries using Other Contrast (ICD-10-PCS; 2020-11-03)
PROC: 027034Z Dilation of Coronary Artery, One Artery with Drug-eluting Intraluminal Device, Percutaneous Approach (ICD-10-PCS; 2020-11-06)
DX: I25.110 Atherosclerotic heart disease of native coronary artery with unstable angina pectoris (principal); I21.A1 Myocardial infarction type 2; N17.0 Acute kidney failure with tubular necrosis; J90 Pleural effusion, not elsewhere classified; E11.65 Type 2 diabetes mellitus with hyperglycemia; I10 Essential (primary) hypertension; E66.9 Obesity, unspecified; Z68.31 Body mass index [BMI] 31.0-31.9, adult; Z86.16 Personal history of COVID-19; I25.2 Old myocardial infarction; I70.0 Atherosclerosis of aorta; Z83.3 Family history of diabetes mellitus; G47.33 Obstructive sleep apnea (adult) (pediatric); E83.52 Hypercalcemia; R91.1 Solitary pulmonary nodule; E87.6 Hypokalemia; Z87.01 Personal history of pneumonia (recurrent); Z87.891 Personal history of nicotine dependence; Z20.822 Contact with and (suspected) exposure to COVID-19; Z90.49 Acquired absence of other specified parts of digestive tract; Z79.84 Long term (current) use of oral hypoglycemic drugs
CPT/HCPCS: 36415; 71045-TC; 71250-TC; 75574; 80048-TC; 80053-TC; 80061-TC; 80076-TC; 82962-TC; 83735-TC; 83880; 84100-TC; 84155; 84165; 84439-TC; 84443-TC; 84484-TC; 85025-TC; 85610-TC; 85652-TC; 85730-TC; 87081-TC; 92980; 92981; 93307-TC; A6403; C1725; C1753; C1769; C1887; C1894; C9803; G0378; G0500; J0171; J0461; J1644; J1650; J1815; J2250; J2370; J2405; J3010; J3420; J3490; J7030; J7050; Q0177; Q9967

== ENCOUNTER 2020-11-20 08:01 | Outpatient (CLI) | payer MEDICARE, OTHER ==
[~2020-11-20 08:01] MED LIST: ALEN70TA80 PO; AMLO-213 PO; ASPI-1420 PO; ATOR10TA PO; CALC-17 PO; CARV6.252 PO; CILO100T PO; CYAN10006 IM; DULA0.75 SQ; ERGO500014 PO; EZET10TA32 PO; FOLI0.4T6 PO; FURO40TA5 PO; GABA-532 PO; GEMF600T90 PO; HYDR-3642 PO; INSU100I26 SQ; ISOS60TA72 PO; LORA-258 PO; MECL-225 PO; MEMA10TA56 PO; MIRT15TA7 PO; NAPR-1009 PO; OLME1TAB92 PO; OMEP20CA15 PO; SERT-438 PO; SITA1TAB6 PO; TICA90TA PO; ZOLP5TAB8 PO
[2020-11-20 09:02] LABS: ALBUMIN 3.9 g/dL (3.4-5.0); BILIRUBIN,TOTAL 0.3 mg/dL (0.2-1.0); CALCIUM, SERUM 10.5 mg/dL (8.5-10.1); CREATININE 1.1 mg/dL (0.6-1.3); POTASSIUM 4.5 mmol/L (3.5-5.1); TOTAL PROTEIN, SERUM 8.4 g/dL (6.4-8.2)
== END 2020-11-20 23:59 | disposition home or self-care (01) ==
LOC: LAB 08:01
PROVIDERS: ATTEND Internal Medicine Interventional Cardiology
DX: I10 Essential (primary) hypertension (principal); B78.9 Strongyloidiasis, unspecified
CPT/HCPCS: 36415; 80053-TC; 80061-TC

== ENCOUNTER 2021-10-12 20:09 | Inpatient (IN) | payer MEDICARE, OTHER ==
[~2021-10-12] VITALS: Ht 175.3 cm; Wt 83.9 kg
[~2021-10-12 20:09] MED LIST changes: -ERGO500014 PO; +ERGO500093 PO; +MECL-182 PO; -MECL-225 PO; +MIRT-90 PO; -MIRT15TA7 PO; -SERT-438 PO; +SERT50TA12 PO
[2021-10-12 21:22] LABS: BASOPHILS # (AUTO) 0.1 K/uL (0.0-0.2); BASOPHILS % (AUTO) 0.5 % (0.0-2.0); EOSINOPHILS % (AUTO) 2.9 % (0.0-6.0); HEMATOCRIT 36 % (33-45); HEMOGLOBIN 12.1 g/dL (11.5-14.8); LYMPHOCYTES # (AUTO) 3.5 K/uL (0.8-4.8); LYMPHOCYTES % (AUTO) 35.4 % (20.0-44.0); MEAN CORPUSCULAR HGB CONC 34 g/dl (31.0-36.0); MEAN CORPUSCULAR VOLUME 87 fL (82-100); MONOCYTES # (AUTO) 0.5 K/uL (0.1-1.30); NEUTROPHILS # (AUTO) 5.5 K/uL (1.8-8.9); NEUTROPHILS % (AUTO) 56.2 % (43.0-81.0); PLATELET COUNT (AUTO) 327 K/uL (150-450); RED BLOOD CELL COUNT(AUTO) 4.15 MIL/uL (4.0-5.2); WHITE BLOOD COUNT (AUTO) 9.8 K/uL (4.3-11.0)
[2021-10-12] MEDS ORDERED: ONDANSETRON HCL/PF 4 MG/2 ML VIAL ONE (21:24)
[2021-10-12] MEDS ORDERED: ONDANSETRON HCL/PF - ER 4 MG/2 ML VIAL IV ONE (21:30)
[2021-10-12 21:36] LABS: CALCIUM, SERUM 9.8 mg/dL (8.5-10.1); CARBON DIOXIDE 20 mmol/L (21-32); CHLORIDE 101 mmol/L (98-107); GLUCOSE 334 mg/dL (74-106); POTASSIUM 4.2 mmol/L (3.5-5.1); SODIUM SERUM 133 mmol/L (136-145); UREA NITROGEN, BLOOD 30 mg/dL (7-18)
[2021-10-12 21:39] LABS: D-DIMER 0.35 mg/L(FEU (0.17-0.50)
[2021-10-12] MEDS ORDERED: INSULIN REGULAR, HUMAN 100 UNIT/ML 10 ML VIAL ONE (21:48)
[2021-10-12] MEDS ORDERED: INSULIN REGULAR, HUMAN 100 UNIT/ML 10 ML VIAL SQ ONE (22:00)
[2021-10-12] MEDS ORDERED: NITROGLYCERIN 0.1 MG/HR PATCH.TD24 TD SCH ×2 (22:00→22:30)
[2021-10-12] MEDS ORDERED: NITROGLYCERIN PACKET 1 GM PACKET ONE (22:05)
[2021-10-12] MEDS ORDERED: NITROGLYCERIN PACKET 1 GM PACKET TOP ONE (22:30)
[2021-10-13 01:08] VITALS: BP 113/57
[2021-10-13] MEDS ORDERED: MAGNESIUM HYDROXIDE 30 ML UDC PO PRN (02:30)
[2021-10-13] MEDS ORDERED: MORPHINE SULFATE INJ 2 MG/ML DISP.SYRIN IV PRN (02:30)
[2021-10-13] MEDS ORDERED: ONDANSETRON HCL/PF 4 MG/2 ML VIAL IVP PRN (02:30)
[2021-10-13] MEDS ORDERED: HYDROCODONE/APAP 5/325MG TABLET PO PRN (02:30)
[2021-10-13] MEDS ORDERED: NITROGLYCERIN 0.4 MG/TAB BOTTLE SL PRN (02:30)
[2021-10-13] MEDS ORDERED: MAG HYDROX/AL HYDROX/SIMETH 30 ML UDC PO PRN (02:30)
[2021-10-13] MEDS ORDERED: Z GUARD REMEDY 4 OZ OINT TP PRN (02:30)
[2021-10-13] MEDS: ENOXAPARIN SODIUM 40 MG/0.4 ML DISP.SYRIN SQ SCH ×2 (03:19→20:38)
[2021-10-13] MEDS: ZOLPIDEM TARTRATE 5 MG TABLET PO PRN ×2 (03:20→20:40)
[2021-10-13 05:10] VITALS: BP 131/79
[2021-10-13] MEDS: PANTOPRAZOLE 40 MG TABLET.DR PO SCH (07:37)
[2021-10-13 08:00] VITALS: BP 129/74
[2021-10-13] MEDS: ATORVASTATIN 10 MG TABLET PO SCH (08:49)
[2021-10-13] MEDS: EZETIMIBE 10 MG TABLET PO SCH (08:49)
[2021-10-13] MEDS: MEMANTINE HCL 5 MG TABLET PO SCH ×2 (08:49→18:11)
[2021-10-13] MEDS: GEMFIBROZIL 600 MG TABLET PO SCH ×2 (08:50→18:11)
[2021-10-13] MEDS: ASPIRIN EC 81 MG TABLET.DR PO SCH (08:50)
[2021-10-13] MEDS: LOSARTAN POTASSIUM 50 MG TABLET PO SCH (08:51)
[2021-10-13] MEDS: HYDROCHLOROTHIAZIDE 25 MG TABLET PO SCH (08:51)
[2021-10-13] MEDS: CARVEDILOL 6.25 MG TABLET PO SCH ×3 (08:52→21:38)
[2021-10-13] MEDS: AMLODIPINE BESYLATE 10 MG TABLET PO SCH (08:52)
[2021-10-13] MEDS: ISOSORBIDE MONONITRATE (30MG) 30 MG TAB.SR.24H PO SCH (08:53)
[2021-10-13] MEDS ORDERED: OMEPRAZOLE 20 MG CAPSULE.DR PO SCH (09:00)
[2021-10-13] MEDS ORDERED: ASPIRIN EC 81 MG TABLET.DR PO SCH (09:00)
[2021-10-13] MEDS: CILOSTAZOL 100 MG TABLET PO SCH ×2 (09:52→18:06)
[2021-10-13] MEDS: TICAGRELOR 90 MG TABLET PO SCH ×2 (09:52→18:07)
[2021-10-13 12:00] VITALS: BP 114/63
[2021-10-13] MEDS ORDERED: DEXTROSE 50%-WATER 50 ML DISP.SYRIN IV PRN (13:30)
[2021-10-13 16:00] VITALS: BP 110/62
[2021-10-13] MEDS: BLOOD SUGAR DIAGNOSTIC 1 EACH STRIP IN SCH ×2 (17:20→22:21)
[2021-10-13] MEDS: INSULIN REGULAR, HUMAN 100 UNIT/ML 3 ML VIAL SQ PRN ×2 (17:22→22:23)
[2021-10-13] MEDS: ACETAMINOPHEN 325 MG TABLET PO PRN (17:42)
[2021-10-13 20:00] VITALS: BP 98/53
[2021-10-13] MEDS: DOXAZOSIN MESYLATE (1 MG) 1 MG TABLET PO SCH ×3 (21:37→22:00)
[2021-10-14] VITALS: BP 105/64
[2021-10-14 04:00] VITALS: BP 121/64
[2021-10-14] MEDS: BLOOD SUGAR DIAGNOSTIC 1 EACH STRIP IN SCH ×4 (06:46→21:35)
[2021-10-14] MEDS: INSULIN REGULAR, HUMAN 100 UNIT/ML 3 ML VIAL SQ PRN ×4 (06:48→21:51)
[2021-10-14] MEDS: PANTOPRAZOLE 40 MG TABLET.DR PO SCH (07:19)
[2021-10-14 08:00] VITALS: BP 130/65
[2021-10-14 08:00] LABS: BASOPHILS % (AUTO) 0.4 % (0.0-2.0); EOSINOPHILS % (AUTO) 2.8 % (0.0-6.0); HEMATOCRIT 34 % (33-45); HEMOGLOBIN 11.3 g/dL (11.5-14.8); LYMPHOCYTES # (AUTO) 3.2 K/uL (0.8-4.8); LYMPHOCYTES % (AUTO) 38.2 % (20.0-44.0); MEAN CORPUSCULAR HGB CONC 34 g/dl (31.0-36.0); MEAN CORPUSCULAR VOLUME 87 fL (82-100); MONOCYTES # (AUTO) 0.5 K/uL (0.1-1.30); MONOCYTES % (AUTO) 5.7 % (2.0-12.0); NEUTROPHILS # (AUTO) 4.4 K/uL (1.8-8.9); NEUTROPHILS % (AUTO) 52.9 % (43.0-81.0); PLATELET COUNT (AUTO) 306 K/uL (150-450); RED BLOOD CELL COUNT(AUTO) 3.86 MIL/uL (4.0-5.2); WHITE BLOOD COUNT (AUTO) 8.3 K/uL (4.3-11.0)
[2021-10-14] MEDS: EZETIMIBE 10 MG TABLET PO SCH (08:26)
[2021-10-14] MEDS: ISOSORBIDE MONONITRATE (30MG) 30 MG TAB.SR.24H PO SCH (08:27)
[2021-10-14] MEDS: GEMFIBROZIL 600 MG TABLET PO SCH ×2 (08:28→17:57)
[2021-10-14] MEDS: CARVEDILOL 6.25 MG TABLET PO SCH ×2 (08:28→17:00)
[2021-10-14] MEDS: LOSARTAN POTASSIUM 50 MG TABLET PO SCH (08:28)
[2021-10-14] MEDS: MEMANTINE HCL 5 MG TABLET PO SCH ×2 (08:28→17:58)
[2021-10-14] MEDS: ATORVASTATIN 10 MG TABLET PO SCH (08:29)
[2021-10-14] MEDS: ASPIRIN EC 81 MG TABLET.DR PO SCH (08:29)
[2021-10-14] MEDS: HYDROCHLOROTHIAZIDE 25 MG TABLET PO SCH (08:29)
[2021-10-14] MEDS: AMLODIPINE BESYLATE 10 MG TABLET PO SCH (08:30)
[2021-10-14] MEDS: TICAGRELOR 90 MG TABLET PO SCH ×2 (08:31→17:58)
[2021-10-14] MEDS: CILOSTAZOL 100 MG TABLET PO SCH ×2 (08:31→17:57)
[2021-10-14 08:33] LABS: CALCIUM, SERUM 9.4 mg/dL (8.5-10.1); CREATININE 0.9 mg/dL (0.6-1.3); MAGNESIUM 2.1 mg/dL (1.8-2.4); PHOSPHORUS 3.9 mg/dL (2.5-4.9)
[2021-10-14 09:37] LABS: THYROID STIMULATING HORMONE 0.947 uIU/mL (0.358-3.74)
[2021-10-14] MEDS: ACETAMINOPHEN 325 MG TABLET PO PRN ×2 (11:02→21:48)
[2021-10-14 12:00] VITALS: BP 128/53
[2021-10-14 16:00] VITALS: BP 104/51
[2021-10-14 20:57] VITALS: BP 106/52
[2021-10-14] MEDS: ENOXAPARIN SODIUM 40 MG/0.4 ML DISP.SYRIN SQ SCH (21:33)
[2021-10-14] MEDS: DOXAZOSIN MESYLATE (1 MG) 1 MG TABLET PO SCH ×2 (21:34→22:00)
[2021-10-14] MEDS: ZOLPIDEM TARTRATE 5 MG TABLET PO PRN (21:34)
[2021-10-15 00:32] VITALS: BP 116/58
[2021-10-15 04:32] VITALS: BP 134/73
[2021-10-15] MEDS: BLOOD SUGAR DIAGNOSTIC 1 EACH STRIP IN SCH ×3 (06:51→12:34)
[2021-10-15] MEDS: PANTOPRAZOLE 40 MG TABLET.DR PO SCH (07:30)
[2021-10-15 08:00] VITALS: BP 143/77
[2021-10-15] MEDS: TICAGRELOR 90 MG TABLET PO SCH (08:58)
[2021-10-15] MEDS: ASPIRIN EC 81 MG TABLET.DR PO SCH (08:58)
[2021-10-15] MEDS: HYDROCHLOROTHIAZIDE 25 MG TABLET PO SCH (08:59)
[2021-10-15] MEDS: CARVEDILOL 6.25 MG TABLET PO SCH (08:59)
[2021-10-15] MEDS: LOSARTAN POTASSIUM 50 MG TABLET PO SCH (08:59)
[2021-10-15] MEDS: ISOSORBIDE MONONITRATE (30MG) 30 MG TAB.SR.24H PO SCH (09:00)
[2021-10-15] MEDS: ATORVASTATIN 10 MG TABLET PO SCH (09:00)
[2021-10-15] MEDS: CILOSTAZOL 100 MG TABLET PO SCH (09:00)
[2021-10-15] MEDS: GEMFIBROZIL 600 MG TABLET PO SCH (09:00)
[2021-10-15] MEDS: EZETIMIBE 10 MG TABLET PO SCH (09:00)
[2021-10-15] MEDS: MEMANTINE HCL 5 MG TABLET PO SCH (09:00)
[2021-10-15] MEDS: AMLODIPINE BESYLATE 10 MG TABLET PO SCH (09:00)
[2021-10-15] MEDS ORDERED: IOHEXOL-350 100 ML VIAL IV ONE (10:59)
[2021-10-15] MEDS ORDERED: NITROGLYCERIN 0.4 MG/TAB BOTTLE ONE (11:00)
[2021-10-15] MEDS ORDERED: METOPROLOL TARTRATE INJ 5 MG/5 ML AMPUL ONE ×3 (11:00→11:48)
[2021-10-15] MEDS ORDERED: IV NS 0.9% 250 ML IV ONE (11:00)
[2021-10-15] MEDS ORDERED: CT SWABBABLE VALVE TRANS SET 1 EA INFUS.SET MC ONE (11:00)
[2021-10-15] MEDS: METOPROLOL TARTRATE INJ 5 MG/5 ML AMPUL IVP PRN ×10 (11:20→12:05)
[2021-10-15] MEDS ORDERED: NITROGLYCERIN 0.4 MG/TAB BOTTLE SL ONE (11:30)
[2021-10-15 12:00] VITALS: BP 129/70
[2021-10-15 16:00] VITALS: BP 137/78
== END 2021-10-15 16:00 | disposition home or self-care (01) | DRG 302 ==
LOC: ER 20:13 → TELE 10-13 00:19
PROVIDERS: ADMIT Internal Medicine; ATTEND Internal Medicine
DX: I25.110 Atherosclerotic heart disease of native coronary artery with unstable angina pectoris (principal); N17.0 Acute kidney failure with tubular necrosis; E87.1 Hypo-osmolality and hyponatremia; E11.9 Type 2 diabetes mellitus without complications; I10 Essential (primary) hypertension; E66.9 Obesity, unspecified; Z83.3 Family history of diabetes mellitus; Z95.5 Presence of coronary angioplasty implant and graft; Z20.822 Contact with and (suspected) exposure to COVID-19; Z79.84 Long term (current) use of oral hypoglycemic drugs; R22.2 Localized swelling, mass and lump, trunk; Z90.49 Acquired absence of other specified parts of digestive tract
CPT/HCPCS: 36415; 71045-TC; 75574; 80048-TC; 80061-TC; 82962-TC; 83735-TC; 83880; 84100-TC; 84443-TC; 84484-TC; 85025-TC; 85378-TC; 85730-TC; 87081-TC; 93307-TC; C9803; G0378; J1650; J1815; J2405; J3490; J7050; Q9967